=== PATIENT | female | born 1940 | race Caucasian/White ===

== ENCOUNTER 2016-04-22 19:13 | Inpatient (IN) | payer OTHER ==
[~2016-04-22] VITALS: Ht 154.9 cm; Wt 47.8 kg
--- NOTE | 2016-04-22 20:26 | DIAGNOSTIC IMAGING REPORT ---
PROCEDURE: XR CHEST 1 VIEW INDICATION: SHORTNESS OF BREATH TECHNIQUE: Portable AP view 07:46 p.m. COMPARISON: Chest x-ray 06/12/2014 FINDINGS: Hyperinflation with new diffuse increased interstitial markings and pulmonary vascular congestion. Mild cardiomegaly. Thorax is normal. IMPRESSION: 1. Mild cardiomegaly with pulmonary vascular congestion and increased interstitial markings suggestive of mild CHF 2. COPD
--- NOTE | 2016-04-22 21:29 | ED NURSING NOTES ---
Clinical Report - Nurses [facility] [address] [place] [address] 04/22/2016 19:18 [id number] TRI[facility] Triage time 19:Apr 22 2016. Acuity: LEVEL 3. Chief Complaint: FEVER, DYSPNEA and COUGH. SEPSIS SCREEN: Sepsis Screen: negative. Infection suspected/documented. Heart rate greater than 90. TAMIKA COMA SCORE: Tamika Coma Scale: 15- eyes open spontaneously (4); best verbal response- oriented x 4 (5); best motor response- obeys commands (6). --19:32 Nina Yost 19:27 04/22/16. BP: 131/75. HR: 101. RR: 18. O2 saturation: 90% on room air. Temp: 99.5 F (oral). Pain level now: 5/10. --19:32 Nina Yost. Weight: 46.7 kg stated. Height/Length: 60 inches Per Patient. BMI: 20.1. --19:30 Nina Yost. Medications Flonase Nasal. Simvastatin Oral. Spiriva HandiHaler Inhalation. --19:29 Nina Yost Vitamin D Oral. --19:29 Nina Yost Calcium + D Oral. --19:29 Nina Yost. Medication/allergy information source: the patient. --19:32 Nina Yost. Allergies No Known Drug Allergy. --19:30 Nina Yost. History Arrived by private vehicle. Historian: patient. Accompanied by family. Primary physician (Tami Chung). Onset. (1 weeks). ( Patient reports cough and fever for one week. Patient reports history of COPD. Denies use of home O2.). She has had fever. PAST MEDICAL HX: Immunizations: up-to-date. The patient is post-menopausal. SOCIAL HX: Smoker- current status unknown. No alcohol use or drug use. No infectious disease exposure. ABUSE ASSESSMENT: No report of abuse. FALL RISK ASSESSMENT: Fall risk assessment completed. No fall risk identified. NUTRITIONAL RISK ASSESSMENT: The nutritional risk assessment revealed no deficiencies. FUNCTIONAL ASSESSMENT: Functional assessment: no impairments noted. LEARNING NEEDS ASSESSMENT: The learning needs assessment revealed no barriers. SKIN INTEGRITY ASSESSMENT: Skin integrity risk assessment completed. No skin integrity risk identified. --19:32 Nina Yost. PROBLEMS: Throat Cancer. Hyperlipidemia. COPD - Chronic Obstructive Pulmonary Disease. --19:30 Nina Yost. ADDITIONAL SURGERIES: Appendectomy. Hysterectomy. --19:30 Nina Yost. Interventions ID band on patient. To treatment room. --19:32 Nina Yost. PHYSICAL ASSESSMENT Ambulatory to room. Patient gowned. GENERAL / NEURO / PSYCH: Alert. Oriented X 4. Appears in no acute distress. HEENT: Mucous membranes are pink. RESPIRATORY: Mild respiratory distress. Cough. CVS: Cardiac rhythm: sinus tachycardia; (102). SKIN: Skin is warm and dry. --19:38 Nina Yost. NURSING PROGRESS NOTES 19:39 04/22/16. Oxygen administered by nasal cannula at 3 liters. lunchroom monitor, pulse oximeter and NIBP monitor placed on patient; monitor alarms on. Patient gowned. Warming measures: blanket applied. Reassurance given to the patient. Two patient identifiers checked. Call light placed in reach. Side rails up x 1. Bed placed in lowest position. Brakes of bed on. Patient ready for evaluation- chart flagged and ED physician notified. ( Provider at bedside, RT called for eval.). --19:39 Nina Yost 20:11 04/22/2016 Site #1 started via IV in the right antecubital space with an 20g angiocath, with aseptic technique and good blood return; one attempt. Blood drawn: rainbow set. Labeled in the presence of the patient and sent to the lab. Saline lock flushed with 10 mL saline. --20:11 Nina Yost ( Rapid flu swab obtained, labeled and sent to lab). --20:12 Nina Yost 20:06. EKG was performed by a tech. --20:15 McQuoid, Daphnie, ER Tech1 20:46 04/22/2016 Tylenol (Acetaminophen) PO Tablets 650 mg given. Allergies verified and confirmed 5 rights. --20:46 Nina Yost ( Patient reports improvement in breathing after nebulizer treatment. Family at bedside. Patient has no complaints at this time.). --20:46 Nina Yost 20:46 04/22/16. BP: 117/53. HR: 96. RR: 18. O2 saturation: 93% on nasal cannula at 2 liters/minute. Pain level now: 5/10. --20:48 Nina Yost 21:08 04/22/16. BP: 123/58. HR: 99. RR: 20. O2 saturation: 88% on room air. Temp: 101.6 F (oral). Pain level now: 5/10. Additional comments: Provider wanted patient to do a trial on room air, Patient at 88% on RA. 2 L applied, patient at 90% on 2 L. Provider notified . --21:10 Nina Yost 21:39 04/22/2016 Motrin PO Tablets 800 mg given. Allergies verified and confirmed 5 rights. --21:39 Nina Yost 21:58. Oxygen discontinued (per BEL[facility]). --21:58 Daphnie Frank, ER Tech1 22:06 04/22/16. O2 saturation: 83% on room air. O2 started via nasal cannula at 2 liters/minute. --22:06 Daphnie Frank, ER Tech1 22:00 04/22/2016 Duoneb (Ipratropium-Albuterol) Neb TX Nebulizer 2 unit dose given. Given by the respiratory therapist. Allergies verified and confirmed 5 rights. --22:10 Nina Yost 22:20 04/22/2016 Started 1 gm of Ceftriaxone IVPB in bag #1 50 mL; at 150 mL/hr over 20 minute(s) via site #1 via IV pump. Allergies verified and confirmed 5 rights. IV patency established. IV site checked: no pain, redness, or swelling. IV flushed thoroughly pre- and post-medication administration. --22:25 Nina Yost ( Patient had brief episode of tachycardia 178 hr. Provider notified. EKG ordered. Lab at bedside drawing labs.). --22:36 Nina Yost EKG time: (2248 PM). EKG was ordered, performed by elizabeth larson and shown to the ED physician and SAND AND GRAVEL PLANT OPERATOR. --22:52 Argelia Marshall 22:55 04/22/2016 Ceftriaxone IVPB Discontinued: bag #1 completed. Total amount infused: 50 mL. IV patency established. IV site checked: no pain, redness, or swelling. IV flushed thoroughly. --23:00 Derrell Coleman R.N. DISPOSITION / DISCHARGE Condition at departure: stable. --22:30 Nina Yost 22:28 04/22/16. BP: 114/48. HR: 105. RR: 22. O2 saturation: 91% on nasal cannula at 2 liters/minute. Temp: 98.6 F (oral). Pain level now: 07/12. --22:30 Nina Yost Transported via stretcher by nurse with monitor and O2. Report was given to a nurse via a phone call. Report included patient's care, treatment, medications, reviewed medication reconcilliation, and condition (including any recent changes or anticipated changes). All questions were answered. Report was acknowledged and care was transferred. (Rosa HALE). Patient's personal items include: shirt, pants and purse; items were placed in belongings bag and transported with the patient. --23:09 Nina Yost 23:09 04/22/2016 Site #[address] upon admission; patent, no pain and no signs of infection or infiltration; flushes easily. --23:09 Nina Yost. Locked/Released at 04/23/2016 6:36 by Nina Yost,
--- NOTE | 2016-04-22 21:29 | ED ORDER SUMMARY ---
..... Patient: LAURA HICKMAN OrderSheet [facility] VisitID: [id number] [place] [address] 75y, F Registration Date/Time: 04/22/2016 ORDER SHEET Weight: 46.7 kg (stated) Allergies: No Known Drug Allergy GENERAL ORDERS: Chest 1V Urgent (19:44 04/22/2016 EKoroleva P.A.-C) (Ack 19:47 LTapper) (20:03 MCampbell) Coal Crusher Operator (Continuous) (:44 04/22/2016 EKoroleva P.A.-C) (20:00 HSoule) Cardiac Panel Stat (:44 04/22/2016 EKoroleva P.A.-C) (Ack 19:47 LTapper) (22:22 HSoule) EKG - ER Stat (:44 04/22/2016 EKoroleva P.A.-C) (Ack 19:47 LTapper) (20:12 HSoule) Oxygen (2 L/min) (NC) (19:44 04/22/2016 EKoroleva P.A.-C) (20:00 HSoule) Rapid Influenza Screen (Nasal Pharyngeal) (n) Urgent (20:02 04/22/2016 EKoroleva P.A.-C) (Ack 20:05 LTapper) (20:45 HSoule) PCT (Procalcitonin) Urgent (20:38 04/22/2016 EKoroleva P.A.-C) (Ack 20:55 LTapper) BNP Urgent (21:04 04/22/2016 EKoroleva P.A.-C) (Ack 21:10 LTapper) Blood Culture (No) (no) Urgent (22:06 04/22/2016 EKoroleva P.A.-C) (Ack 22:22 HSoule) (23:06 HSoule) MEDICATION ORDERS: Tylenol PO 650 mg (NOW) (20:01 04/22/2016 EKoroleva P.A.-C) (Ack 20:11 HSoule) (20:46 HSoule) Motrin PO 800 mg (NOW) (21:12 04/22/2016 EKoroleva P.A.-C) (Ack 21:24 HSoule) (21:39 HSoule) DuoNeb Neb Tx 2 unit doses (NOW) (21:42 04/22/2016 EKoroleva P.A.-C) (22:10 HSoule) IV FLUIDS: IV Saline Lock (19:44 04/22/2016 EKoroleva P.A.-C) (Ack 20:01 HSoule) (20:11 HSoule) Azithromycin IV 500 mg/250 mL (NOW) (22:06 04/22/2016 EKoroleva P.A.-C) (Ack 22:10 HSoule) (Hold 23:10 HSoule) Ceftriaxone IV 1 gm/50mL (NOW) (22:07 04/22/2016 EKoroleva P.A.-C) (Ack 22:10 HSoule) (22:25 HSoule) ORDER SHEET NOTES: [Electronically signed by Jessi Doe P.A.-C (23:17 04/22/2016)] [Electronically signed by Nina Yost (06:36 04/23/2016)] [Electronically locked/signed by Nina Yost (06:36 04/23/2016)]
--- NOTE | 2016-04-22 21:29 | ED CLINICAL REPORT ---
Clinical Report - Physicians/Mid Levels [facility] [address] [place] [address] 04/22/2016 19:18 [id number] Time Seen: 20:16 Apr 22 2016. Arrived- By private vehicle. Historian- patient. HISTORY OF PRESENT ILLNESS Chief Complaint: DYSPNEA. This started just prior to arrival and is still present. The dyspnea is described as mild. The patient has had sputum production, a cough, fever, chills and dyspnea on exertion. No chest pain or discomfort or calf pain. (patient reports shortness of breath, cough, worsening of all of her symptoms, over the last 24 hours. Reports fevers chills weakness. Denies sick contacts. Denies any recent hospitalization. Has a history of COPD, uses Spar[facility]. No h/o pe/dvt, recent travel. No recent abx. .). REVIEW OF SYSTEMS The patient has not had weight loss. No muscle aches, sore throat, nasal discharge, nausea or difficulty with urination. No skin rash or enlarged lymph nodes. All systems otherwise negative, except as recorded above. PAST HISTORY Problems: Throat Cancer. Hyperlipidemia. Gastroenteritis. COPD - Chronic Obstructive Pulmonary Disease. Additional Surgeries: Appendectomy. Hysterectomy. Medications: Calcium + D Oral. Vitamin D Oral. Flonase Nasal. Simvastatin Oral. Spiriva HandiHaler Inhalation. Allergies: No Known Drug Allergy. SOCIAL HISTORY No alcohol use or drug use. ADDITIONAL NOTES The nursing notes have been reviewed. PHYSICAL EXAM Vital Signs: 04/22/2016 19:27 BP: 131/75. HR: 101. RR: 18. O2 saturation: 90%. Temp: 99.5 F. Pain level now: 5/10. Appearance: Alert. No acute distress. ENT: Nose normal. Pharynx normal. Uvula midline. No pharyngeal erythema. CVS: Tachycardia. Tachycardia (101). Rhythm normal. No extra heart sounds. Respiratory: Decreased air movement. Wheezing present. Back: Normal inspection. No CVA tenderness. Skin: Skin warm. Normal skin color. Neuro: Oriented X 3. LABS, X-RAYS, AND EKG EKG: EKG time: (2011). No acute process. No acute ischemia. Rate: 97. Normal P waves. Normal CIELO. Normal QRS complex. Normal axis. Normal ST and T waves and QT. Chest X-ray: (IMPRESSION: 1. Mild cardiomegaly with pulmonary vascular congestion and increased interstitial markings suggestive of mild CHF 2. COPD Electronically Final signed by:Parth Carrillo MD 04/22/2016 8:26:03 PM). Laboratory Tests: CBC w Diff: (PEARL: 04/22/2016 20:10) ( [facility] 04/[place] 20:25) Final results Test Result Flag Units (Reference) WHITE BLOOD COUNT 8.5 K/uL (4.5-11.5) RED BLOOD COUNT 4.04 M/uL (4.00-5.20) HEMOGLOBIN 12.4 gm/dL (12.0-16.0) HEMATOCRIT 38.0 % (36.0-46.0) MEAN CELL VOLUME 94 fL (80-100) MEAN CORPUSCULAR HGB 31 pg (26-34) MEAN CORPUSCULAR HGB CONC 33 g/dL (31-37) RED CELL DISTRIBUTION WIDTH 14.9 H % (11.6-14.8) PLATELET COUNT 173 K/uL (150-400) NEUTROPHIL % 85.3 H % (50-75) LYMPH % 7.1 L % (25-40) MONO % 7.1 % (3-14) EOSINOPHIL % 0.1 % (0-4) BASOPHIL % 0.4 % (0-2) CHEM 13 PANEL: (EPARL: 04/22/2016 20:10) ( NmgRcvd 04/22/2016 20:53) Final results Test Result Flag Units (Reference) GLUCOSE 132 H mg/dL (70-110) BUN 11 mg/dL (7-18) CREATININE 0.6 mg/dL (0.6-1.3) Estimated GFR >60 mL/min Estimated GFR- >60 mL/min Note: Persistent reduction over 3 months in eGFR<60 mL/min/1.73 m2 defines CKD. Patients with eGFR values>=60 mL/min/1.73 m2 may also have CKD if evidence ofpersistent proteinuria. Additional information may be foundat www.kidney.org. SODIUM 141 mmol/L (136-145) POTASSIUM 3.5 mmol/L (3.5-5.1) CHLORIDE 100 mmol/L (98-107) CARBON DIOXIDE 33 H mmol/L (21-32) CALCIUM 8.9 mg/dL (8.5-10.1) TOTAL PROTEIN 6.9 g/dL (6.4-8.2) ALBUMIN 3.6 g/dL (3.3-5.0) BILIRUBIN, TOTAL 1.4 H mg/dL (0.0-1.0) ALKALINE PHOSPHATASE 96 U/L (46-116) AST (SGOT) 46 H U/L (15-37) ALT (SGPT) 49 U/L (12-78) CPK 72 U/L (24-260) MAGNESIUM 2.0 mg/dL (1.8-2.4) TROPONIN I <0.05 L ng/mL (0.00-1.5) TROPONIN REFERENCE RANGE:<0.1 NEGATIVE0.1-1.5 INDETERMINANT>1.5 POSITIVE Rapid Influenza Screen: (PEARL: 04/22/2016 20:10) ( MsgRcvd 04/22/2016 20:47) Final results SPECIMEN DESCRIPTION: N Test Result Flag Units (Reference) RAPID INFLUENZA SCREEN DATE: 04/22/16 INFLUENZA A: NEGATIVE SCREEN FOR INFLUENZA A INFLUENZA B: NEGATIVE SCREEN FOR INFLUENZA B . PROGRESS AND PROCEDURES Course of Care: here in the ER patient with cough, acute exacerbation of such, with fevers, largely negative workup in the ER. Patient with sat of 88% on room air, improves to 94%. Treatment of DuoNeb given to patient, with some improvement. Rapid influenza is negative. EKG unremarkable. Chest x-ray with no signs of acute infiltrate. Case discussed with , Will except the patient for admission. We'll order blood cultures and initiate antibiotics as discussed. 04/22/2016 22:28 BP: 114/48. HR: 105. RR: 22. O2 saturation: 91%. Temp: 98.6 F. Pain level now: 07/12. 04/22/2016 22:06 O2 saturation: 83%. 04/22/2016 21:08 BP: 123/58. HR: 99. RR: 20. O2 saturation: 88%. Temp: 101.6 F. Pain level now: 08/11. 04/22/2016 20:46 BP: 117/53. HR: 96. RR: 18. O2 saturation: 93%. Pain level now: 08/11. Patient is stable. Patient/family counseled. Differential Diagnosis: I considered asthma, chronic obstructive pulmonary disease, pneumonia, pulmonary embolism, adult respiratory distress syndrome, pneumothorax, congestive heart failure, diabetic ketoacidosis, sepsis, anemia, drug related etiology, hyperventilation and ROBOTIC WELDING OPERATOR disease as a possible cause of dyspnea in this patient. This is a partial list of diagnoses considered. I considered chest wall pain, muscle strain, pleurisy, intercostal neuritis, myocardial infarction, intermediate coronary syndrome, pulmonary embolism, gastroesophageal reflux disease and esophagitis as a possible cause of chest pain in this patient. This is a partial list of diagnoses considered. CLINICAL IMPRESSION COPD exacerbation. INSTRUCTIONS Warnings: Further evaluation is necessary. (Electronically signed by Jessi Doe P.A.-C 04/22/2016 23:17)
--- NOTE | 2016-04-22 21:29 | ED ORDER SUMMARY ---
..... Patient: LAURA HICKMAN [facility] VisitID: [id number] [place] [address] 75y, F Registration Date/Time: 04/22/2016 ORDER SHEET Weight: 46.7 kg (stated) Allergies: No Known Drug Allergy GENERAL ORDERS: Chest 1V Urgent (19:44 04/22/2016 EKoroleva P.A.-C) (Ack 19:47 LTapper) (20:03 MCampbell) Negative Stripper (Continuous) (:44 04/22/2016 EKoroleva P.A.-C) (20:00 HSoule) Cardiac Panel Stat (:44 04/22/2016 EKoroleva P.A.-C) (Ack 19:47 LTapper) (22:22 HSoule) EKG - ER Stat (:44 04/22/2016 EKoroleva P.A.-C) (Ack 19:47 LTapper) (20:12 HSoule) Oxygen (2 L/min) (NC) (19:44 04/22/2016 EKoroleva P.A.-C) (20:00 HSoule) Rapid Influenza Screen (Nasal Pharyngeal) (n) Urgent (20:02 04/22/2016 EKoroleva P.A.-C) (Ack 20:05 LTapper) (20:45 HSoule) PCT (Procalcitonin) Urgent (20:38 04/22/2016 EKoroleva P.A.-C) (Ack 20:55 LTapper) BNP Urgent (21:04 04/22/2016 EKoroleva P.A.-C) (Ack 21:10 LTapper) Blood Culture (No) (no) Urgent (22:06 04/22/2016 EKoroleva P.A.-C) (Ack 22:22 HSoule) (23:06 HSoule) MEDICATION ORDERS: Tylenol PO 650 mg (NOW) (20:01 04/22/2016 EKoroleva P.A.-C) (Ack 20:11 HSoule) (20:46 HSoule) Motrin PO 800 mg (NOW) (21:12 04/22/2016 EKoroleva P.A.-C) (Ack 21:24 HSoule) (21:39 HSoule) DuoNeb Neb Tx 2 unit doses (NOW) (21:42 04/22/2016 EKoroleva P.A.-C) (22:10 HSoule) IV FLUIDS: IV Saline Lock (19:44 04/22/2016 EKoroleva P.A.-C) (Ack 20:01 HSoule) (20:11 HSoule) Azithromycin IV 500 mg/250 mL (NOW) (22:06 04/22/2016 EKoroleva P.A.-C) (Ack 22:10 HSoule) (Hold 23:10 HSoule) Ceftriaxone IV 1 gm/50mL (NOW) (22:07 04/22/2016 EKoroleva P.A.-C) (Ack 22:10 HSoule) (22:25 HSoule) ORDER SHEET NOTES: [Electronically signed by Jessi Doe P.A.-C (23:17 04/22/2016)] [Electronically signed by Nina Yost (06:36 04/23/2016)] [Electronically locked/signed by Nina Yost (06:36 04/23/2016)]
--- NOTE | 2016-04-22 21:29 | ED CLINICAL REPORT ---
Clinical Report - Physicians/Mid Levels [facility] [address] [place] [address] 04/22/2016 19:18 [id number] Time Seen: 20:16 Apr 22 2016. Arrived- By private vehicle. Historian- patient. HISTORY OF PRESENT ILLNESS Chief Complaint: DYSPNEA. This started just prior to arrival and is still present. The dyspnea is described as mild. The patient has had sputum production, a cough, fever, chills and dyspnea on exertion. No chest pain or discomfort or calf pain. (patient reports shortness of breath, cough, worsening of all of her symptoms, over the last 24 hours. Reports fevers chills weakness. Denies sick contacts. Denies any recent hospitalization. Has a history of COPD, uses Spariva. No h/o pe/dvt, recent travel. No recent abx. .). REVIEW OF SYSTEMS The patient has not had weight loss. No muscle aches, sore throat, nasal discharge, nausea or difficulty with urination. No skin rash or enlarged lymph nodes. All systems otherwise negative, except as recorded above. PAST HISTORY Problems: Throat Cancer. Hyperlipidemia. Gastroenteritis. COPD - Chronic Obstructive Pulmonary Disease. Additional Surgeries: Appendectomy. Hysterectomy. Medications: Calcium + D Oral. Vitamin D Oral. Flonase Nasal. Simvastatin Oral. Spiriva HandiHaler Inhalation. Allergies: No Known Drug Allergy. SOCIAL HISTORY No alcohol use or drug use. ADDITIONAL NOTES The nursing notes have been reviewed. PHYSICAL EXAM Vital Signs: 04/22/2016 19:27 BP: 131/75. HR: 101. RR: 18. O2 saturation: 90%. Temp: 99.5 F. Pain level now: 5/10. Appearance: Alert. No acute distress. ENT: Nose normal. Pharynx normal. Uvula midline. No pharyngeal erythema. CVS: Tachycardia. Tachycardia (101). Rhythm normal. No extra heart sounds. Respiratory: Decreased air movement. Wheezing present. Back: Normal inspection. No CVA tenderness. Skin: Skin warm. Normal skin color. Neuro: Oriented X 3. LABS, X-RAYS, AND EKG EKG: EKG time: (2011). No acute process. No acute ischemia. Rate: 97. Normal P waves. Normal CIELO. Normal QRS complex. Normal axis. Normal ST and T waves and QT. Chest X-ray: (IMPRESSION: 1. Mild cardiomegaly with pulmonary vascular congestion and increased interstitial markings suggestive of mild CHF 2. COPD Electronically Final signed by:Parth Carrillo MD 04/22/2016 8:26:03 PM). Laboratory Tests: CBC w Diff: (PEARL: 04/22/2016 20:10) ( [facility] [place] 04/[facility]:25) Final results Test Result Flag Units (Reference) WHITE BLOOD COUNT 8.5 K/uL (4.5-11.5) RED BLOOD COUNT 4.04 M/uL (4.00-5.20) HEMOGLOBIN 12.4 gm/dL (12.0-16.0) HEMATOCRIT 38.0 % (36.0-46.0) MEAN CELL VOLUME 94 fL (80-100) MEAN CORPUSCULAR HGB 31 pg (26-34) MEAN CORPUSCULAR HGB CONC 33 g/dL (31-37) RED CELL DISTRIBUTION WIDTH 14.9 H % (11.6-14.8) PLATELET COUNT 173 K/uL (150-400) NEUTROPHIL % 85.3 H % (50-75) LYMPH % 7.1 L % (25-40) MONO % 7.1 % (3-14) EOSINOPHIL % 0.1 % (0-4) BASOPHIL % 0.4 % (0-2) CHEM 13 PANEL: (PEARL: 04/22/2016 20:10) ( PrgRcvd 04/22/2016 20:53) Final results Test Result Flag Units (Reference) GLUCOSE 132 H mg/dL (70-110) BUN 11 mg/dL (7-18) CREATININE 0.6 mg/dL (0.6-1.3) Estimated GFR >60 mL/min Estimated GFR- >60 mL/min Note: Persistent reduction over 3 months in eGFR<60 mL/min/1.73 m2 defines CKD. Patients with eGFR values>=60 mL/min/1.73 m2 may also have CKD if evidence ofpersistent proteinuria. Additional information may be foundat www.kidney.org. SODIUM 141 mmol/L (136-145) POTASSIUM 3.5 mmol/L (3.5-5.1) CHLORIDE 100 mmol/L (98-107) CARBON DIOXIDE 33 H mmol/L (21-32) CALCIUM 8.9 mg/dL (8.5-10.1) TOTAL PROTEIN 6.9 g/dL (6.4-8.2) ALBUMIN 3.6 g/dL (3.3-5.0) BILIRUBIN, TOTAL 1.4 H mg/dL (0.0-1.0) ALKALINE PHOSPHATASE 96 U/L (46-116) AST (SGOT) 46 H U/L (15-37) ALT (SGPT) 49 U/L (12-78) CPK 72 U/L (24-260) MAGNESIUM 2.0 mg/dL (1.8-2.4) TROPONIN I <0.05 L ng/mL (0.00-1.5) TROPONIN REFERENCE RANGE:<0.1 NEGATIVE0.1-1.5 INDETERMINANT>1.5 POSITIVE Rapid Influenza Screen: (PEARL: 04/22/2016 20:10) ( MsgRcvd 04/22/2016 20:47) Final results SPECIMEN DESCRIPTION: N Test Result Flag Units (Reference) RAPID INFLUENZA SCREEN DATE: 04/22/16 INFLUENZA A: NEGATIVE SCREEN FOR INFLUENZA A INFLUENZA B: NEGATIVE SCREEN FOR INFLUENZA B . PROGRESS AND PROCEDURES Course of Care: here in the ER patient with cough, acute exacerbation of such, with fevers, largely negative workup in the ER. Patient with sat of 88% on room air, improves to 94%. Treatment of DuoNeb given to patient, with some improvement. Rapid influenza is negative. EKG unremarkable. Chest x-ray with no signs of acute infiltrate. Case discussed with , Will except the patient for admission. We'll order blood cultures and initiate antibiotics as discussed. 04/22/2016 22:28 BP: 114/48. HR: 105. RR: 22. O2 saturation: 91%. Temp: 98.6 F. Pain level now: 07/12. 04/22/2016 22:06 O2 saturation: 83%. 04/22/2016 21:08 BP: 123/58. HR: 99. RR: 20. O2 saturation: 88%. Temp: 101.6 F. Pain level now: 08/11. 04/22/2016 20:46 BP: 117/53. HR: 96. RR: 18. O2 saturation: 93%. Pain level now: 08/11. Patient is stable. Patient/family counseled. Differential Diagnosis: I considered asthma, chronic obstructive pulmonary disease, pneumonia, pulmonary embolism, adult respiratory distress syndrome, pneumothorax, congestive heart failure, diabetic ketoacidosis, sepsis, anemia, drug related etiology, hyperventilation and SNAKER DRIVING HORSES disease as a possible cause of dyspnea in this patient. This is a partial list of diagnoses considered. I considered chest wall pain, muscle strain, pleurisy, intercostal neuritis, myocardial infarction, intermediate coronary syndrome, pulmonary embolism, gastroesophageal reflux disease and esophagitis as a possible cause of chest pain in this patient. This is a partial list of diagnoses considered. CLINICAL IMPRESSION COPD exacerbation. INSTRUCTIONS Warnings: Further evaluation is necessary. (Electronically signed by Jessi Doe P.A.-C 04/22/2016 23:17)
--- NOTE | 2016-04-22 23:08 | History & Physical Report ---
Admission Admit Date 04/22/2016 History Chief Complaint Cough, Shortness of Breath, Fever History of Present Illness Patient is a 75 year old female with a past medical history of COPD, "Throat" Cancer, Tobacco Use Disorder, and Hyperlipidemia. She presents to the ER at [facility] complaining of a 1 day hx of worsening cough and shortness of breath. Pt states her cough is productive of clear colored sputum. Pt states she has been feeling poorly for the last day and has experiences significant fatigue, as well as fever and chills. Pt denies any nausea, vomiting, diarrhea, chest pain, and palpitations. She further denies any headache or myalgias. She denies any recent sick contacts. She states over the last day she has felt more and more short of breath and she has been using her inhalers at home to no avail. Pt has no other complaints or concerns at this time. Patient History 1. Throat cancer 2. Hyperlipidemia 3. Tobacco use disorder 4. COPD (chronic obstructive pulmonary disease) Social History Pt does smoke cigarettes. She denies any hx of alcoholism and use of illicit drugs. Family History Family history was reviewed; no changes noted. Medications and Allergies Medications Current Medications Sig/Dina Start time Last Medication Dose Route Stop Time Status Admin Azithromycin 500 MG Q24HR 04/23 0900 UNV Sodium Chloride 250 ML IV 04/25 1000 Ceftriaxone Sodium/ 50 ML Q24HR 04/23 0900 UNV Dextrose IV Methylprednisolone 125 MG Q8HR 04/23 0600 UNV Sodium Succinate IV Pantoprazole Sodium 40 MG DAILY@0600 04/23 0600 UNV IV Albuterol/Ipratropium 3 ML RTQ6H 04/23 0200 UNV IN Acetaminophen 650 MG Q6H PRN 04/22 2300 UNV PO Docusate Sodium 250 MG BID PRN 04/22 2300 UNV PO Morphine Sulfate 1 MG Q6H PRN 04/22 2300 UNV IV Naloxone HCl 0.4 MG PRN PRN 04/22 2300 UNV IV Ondansetron HCl 4 MG Q6H PRN 04/22 2300 UNV IV Sodium Chloride 1,000 ML ASDIRECTED 04/22 2300 UNV IV Zolpidem Tartrate 5 MG QHS PRN 04/22 2300 UNV PO Sodium Chloride 1,000 ML ASDIRECTED 04/22 2245 UNV IV Pts home medications have not yet been reconciled. Allergies Coded Allergies: No Known Drug Allergy (12/05/09) Uncoded Allergies: Food Allergies: NKA Latex Allergy: N Med Allergies: NKA Review of Systems Other All systems reviewed and are negative except for what has already been mentioned in the HPI. Physical Exam Vital Signs / I&Os Vital Signs Date Time Temp Pulse Resp B/P Pulse O2 O2 Flow FiO2 Ox Delivery Rate 04/22 2142 100.9 101 18 135/80 97% NC 2.0 04/22 1940 2.0 Other GENERAL: NAD; Pt laying comfortably in bed HEENT: AT/NC; PERRLA, EOMI; MM Moist CARDIAC: Tachycardic, No M/R/G appreciated PULM: Coarse breath sounds with diffuse expiratory wheezes throughout bilateral lungs, normal respiratory effort with retractions ABD: Soft, NT, ND, Positive BS in all quadrants; No hepatosplenomegaly appreciated EXT: No C/C/E in bilateral upper and lower extremity; No calve tenderness bilaterally SKIN: Warm, dry, pink, and intact NEURO: Alert and oriented x3; Following all commands PSYCH: Normal mood and affect LAB Results Laboratory Tests 04/22 Chemistry Plasma Sodium (136 - 145 mmol/L) 141 Plasma Potassium (3.5 - 5.1 mmol/L) 3.5 Plasma Chloride (98 - 107 mmol/L) 100 CO2 (Enzymatic) (21 - 32 mmol/L) 33 BUN (7 - 18 mg/dL) 11 Creatinine (0.6 - 1.3 mg/dL) 0.6 Est GFR ( Amer) (mL/min) >60 Est GFR (Non-Af Amer) (mL/min) >60 Glucose (70 - 110 mg/dL) 132 Plasma Calcium (8.5 - 10.1 mg/dL) 8.9 Plasma Magnesium (1.8 - 2.4 mg/dL) 2.0 Total Bilirubin (0.0 - 1.0 mg/dL) 1.4 AST (15 - 37 U/L) 46 ALT (12 - 78 U/L) 49 Alkaline Phosphatase (46 - 116 U/L) 96 Creatine Kinase (24 - 260 U/L) 72 Troponin (0.00 - 1.5 ng/mL) <0.05 B-Natriuretic Peptide (5 - 100 pg/ml) 102 Total Protein (6.4 - 8.2 g/dL) 6.9 Albumin (3.3 - 5.0 g/dL) 3.6 Procalcitonin Pending Hematology WBC (4.5 - 11.5 K/uL) 8.5 RBC (4.00 - 5.20 M/uL) 4.04 Hgb (12.0 - 16.0 gm/dL) 12.4 Hct (36.0 - 46.0 %) 38.0 MCV (80 - 100 fL) 94 MCH (26 - 34 pg) 31 RDW (11.6 - 14.8 %) 14.9 Neut % (Auto) (50 - 75 %) 85.3 Lymph % (Auto) (25 - 40 %) 7.1 [place] % (Auto) (3 - 14 %) 7.1 Eos % (Auto) (0 - 4 %) 0.1 Baso % (Auto) (0 - 2 %) 0.4 Plt Count, EDTA (150 - 400 K/uL) 173 PUBS MCHC (31 - 37 g/dL) 33 Microbiology Date/Time Procedure - Status Source Growth 04/22 224 Blood Culture - RECD BLOOD 04/22 2229 Blood Culture - RECD BLOOD 04/22 2009 Influenza Screen - COMP NASALPHAR Imaging XR CHEST 1 VIEW INDICATION: SHORTNESS OF BREATH TECHNIQUE: Portable AP view 07:46 p.m. COMPARISON: Chest x-ray 06/12/2014 FINDINGS: Hyperinflation with new diffuse increased interstitial markings and pulmonary vascular congestion. Mild cardiomegaly. Thorax is normal. IMPRESSION: 1. Mild cardiomegaly with pulmonary vascular congestion and increased interstitial markings suggestive of mild CHF 2. COPD Assessment and Plan Problem List 1. Pneumonia Plan - Likely secondary to Community Acquired Pneumonia which is present on admission - Start IV Rocephin - Start IV Azithromycin - Blood cultures x2 have been taken in the ER - Check urine Strep Pneumoniae Ag - Check urine Legionella Ag - Check Respiratory Viral PCR Panel - Pt is flu negative - Check CRP now - Recheck Procalcitonin in 2 days - Repeat CBC with diff in AM - Repeat 2 view chest x-ray in AM - Supplemental O2 to keep SpO2 greater than 92% - Breathing treatments, see #2 2. COPD with exacerbation Plan - Secondary to Pneumonia - Start IV Solu-Medrol 125 mg q 8 hours - Duo-Neb breathing treatments q 6 hours scheduled - Supplemental O2 to keep SpO2 greater than 92% - Monitor closely 3. Hyperlipidemia Plan - Pt is normally on Atorvastatin at home however dose is unknown therefore day team to restart this medication in AM 4. Tobacco use disorder Plan - Pt counseled to quit smoking
[2016-04-22 23:40] VITALS: BP 116/60
[2016-04-23] VITALS (7 sets, daily range): BP systolic 86–120; BP diastolic 45–75
--- NOTE | 2016-04-23 06:36 | ED DISCHARGE INSTRUCTIONS ---
Patient: LAURA HICKMAN General Instructions [facility] VisitID: [id number] [address] [place] [address] 75y, F Registration Date/Time: 04/22/2016 COPD exacerbation. INSTRUCTIONS Warnings: Further evaluation is necessary. (Electronically signed by Jessi Doe P.A.-C 04/22/2016 23:17)
--- NOTE | 2016-04-23 06:36 | ED DISCHARGE INSTRUCTIONS ---
Patient: LAURA HICKMAN General Instructions [facility] VisitID: [id number] [address] [place] [address] 75y, F Registration Date/Time: 04/22/2016 COPD exacerbation. INSTRUCTIONS Warnings: Further evaluation is necessary. (Electronically signed by Jessi Doe P.A.-C 04/22/2016 23:17)
--- NOTE | 2016-04-23 06:37 | ED MAR SUMMARY ---
..... Medication Administration Record [facility] [address] [place] [address] Patient: LAURA HICKMAN Visit ID: [id number] 75y, F Weight: 46.7 kg Height/Length: 60 in BMI: 20.1 ALLERGIES: No Known Drug Allergy Given 20:46 04/22/2016 Nina Yost, Medication Administered: TYLENOL [PO] (ACETAMINOPHEN), Dose: 650 mg Tablets PO. Medication Ordered: Tylenol PO 650 mg (NOW). Given 21:39 04/22/2016 Nina Yost, Medication Administered: MOTRIN [PO], Dose: 800 mg Tablets PO. Medication Ordered: Motrin PO 800 mg (NOW). Given 22:00 04/22/2016 Nina Yost, Medication Administered: DUONEB [NEB TX] (IPRATROPIUM-ALBUTEROL), Dose: 2 unit dose Nebulizer Neb TX. Medication Ordered: DuoNeb Neb Tx 2 unit doses (NOW). Start 22:20 04/22/2016 Nina Yost,, Stop 22:55 04/22/2016 Derrell Coleman R.N. Medication Administered: CEFTRIAXONE [IVPB], Dose: 1 gm IVPB over 20 minute(s), Rate: 150 mL/hr, Dispensed: 50 mL bag, Site: #1 right . Medication Ordered: Ceftriaxone IV 1 gm/50mL (NOW).
--- NOTE | 2016-04-23 06:37 | ED MAR SUMMARY ---
..... Medication Administration Record [facility] [address] [place] [address] Patient: LAURA HICKMAN Visit ID: [id number] 75y, F Weight: 46.7 kg Height/Length: 60 in BMI: 20.1 ALLERGIES: No Known Drug Allergy Given 20:46 04/22/2016 Nina Yost, Medication Administered: TYLENOL [PO] (ACETAMINOPHEN), Dose: 650 mg Tablets PO. Medication Ordered: Tylenol PO 650 mg (NOW). Given 21:39 04/22/2016 Nina Yost, Medication Administered: MOTRIN [PO], Dose: 800 mg Tablets PO. Medication Ordered: Motrin PO 800 mg (NOW). Given 22:00 04/22/2016 Nina Yost, Medication Administered: DUONEB [NEB TX] (IPRATROPIUM-ALBUTEROL), Dose: 2 unit dose Nebulizer Neb TX. Medication Ordered: DuoNeb Neb Tx 2 unit doses (NOW). Start 22:20 04/22/2016 Nina Yost,, Stop 22:55 04/22/2016 Derrell Coleman R.N. Medication Administered: CEFTRIAXONE [IVPB], Dose: 1 gm IVPB over 20 minute(s), Rate: 150 mL/hr, Dispensed: 50 mL bag, Site: #1 right . Medication Ordered: Ceftriaxone IV 1 gm/50mL (NOW).
--- NOTE | 2016-04-23 06:37 | ED MED RECONCILIATION SUMMARY ---
Patient: LAURA HICKMAN Medication Reconciliation Report [facility] VisitID: [id number] [address] [place] [address] 75y, F Registration Date/Time: 04/22/2016 Weight: 46.7 kg Height/Length: 60 in. BMI: 20.1 ALLERGIES: No Known Drug Allergy The patient's Home Medications are listed below: THE FOLLOWING MEDICATIONS NEED TO BE RECONCILED: Calcium + D Oral Flonase Nasal Simvastatin Oral Spiriva HandiHaler Inhalation Vitamin D Oral The source(s) of the original Home Medication information: patient The following Medications were given to the patient in the Emergency Department: Tylenol [PO] PO 650 mg, administered: 04/22/2016 8:46:00 PM Motrin [PO] PO 800 mg, administered: 04/22/2016 9:39:00 PM Duoneb [Neb Tx] Neb TX 2 unit dose, administered: 04/22/2016 10:00:00 PM Ceftriaxone [IVPB] IVPB bolus 0, then 1 gm 150 mL/hr, administered: 04/22/2016 10:20:00 PM The following Medications were prescribed to the patient: None.
--- NOTE | 2016-04-23 06:37 | ED MED RECONCILIATION SUMMARY ---
Patient: LAURA HICKMAN Medication Reconciliation Report [facility] VisitID: [id number] [address] [place] [address] 75y, F Registration Date/Time: 04/22/2016 Weight: 46.7 kg Height/Length: 60 in. BMI: 20.1 ALLERGIES: No Known Drug Allergy The patient's Home Medications are listed below: THE FOLLOWING MEDICATIONS NEED TO BE RECONCILED: Calcium + D Oral Flonase Nasal Simvastatin Oral Spiriva HandiHaler Inhalation Vitamin D Oral The source(s) of the original Home Medication information: patient The following Medications were given to the patient in the Emergency Department: Tylenol [PO] PO 650 mg, administered: 04/22/2016 8:46:00 PM Motrin [PO] PO 800 mg, administered: 04/22/2016 9:39:00 PM Duoneb [Neb Tx] Neb TX 2 unit dose, administered: 04/22/2016 10:00:00 PM Ceftriaxone [IVPB] IVPB bolus 0, then 1 gm 150 mL/hr, administered: 04/22/2016 10:20:00 PM The following Medications were prescribed to the patient: None.
--- NOTE | 2016-04-23 07:55 | Progress Note ---
Subjective General 75 yo female admitted with COPD exacerbation and diagnosis of pneumonia, though CXR is negative. Respiratory PCR panel ordered and pending. Pt feels somewhat improved but still coughing and mildly sob. Lightheaded on standing. Physical Exam Vital Signs / I&Os Vital Signs Date Time Temp Pulse Resp B/P Pulse O2 O2 Flow FiO2 Ox Delivery Rate 04/23 0543 98.1 95 20 94/53 92 Nasal 2.0 Cannula 04/23 0515 2.0 04/23 0201 88/45 04/23 0159 98.2 86 16 86/50 99 Nasal 2.0 Cannula 04/23 0146 2.0 04/23 0005 4.0 04/22 2340 99.0 97 16 116/60 92 Nasal 4.0 Cannula 04/22 2143 2.0 04/22 1941 2.0 General Appearance Alert, Oriented X3, Cooperative, No acute distress Lungs Normal exam Cardiovascular Regular rate and rhythm Abdomen Normal bowel sounds, Soft, No tenderness Extremities No edema Skin No Rashes LAB Results Laboratory Tests 04/22 Chemistry Plasma Sodium (136 - 145 mmol/L) 141 142 Plasma Potassium (3.5 - 5.1 mmol/L) 3.5 2.9 Plasma Chloride (98 - 107 mmol/L) 100 103 CO2 (Enzymatic) (21 - 32 mmol/L) 33 30 BUN (7 - 18 mg/dL) 11 10 Creatinine (0.6 - 1.3 mg/dL) 0.6 0.8 Est GFR ( Amer) (mL/min) >60 >60 Est GFR (Non-Af Amer) (mL/min) >60 >60 Glucose (70 - 110 mg/dL) 132 108 Plasma Calcium (8.5 - 10.1 mg/dL) 8.9 8.1 Plasma Magnesium (1.8 - 2.4 mg/dL) 2.0 1.9 Total Bilirubin (0.0 - 1.0 mg/dL) 1.4 AST (15 - 37 U/L) 46 ALT (12 - 78 U/L) 49 Alkaline Phosphatase (46 - 116 U/L) 96 Creatine Kinase (24 - 260 U/L) 72 Troponin (0.00 - 1.5 ng/mL) <0.05 B-Natriuretic Peptide (5 - 100 pg/ml) 102 Total Protein (6.4 - 8.2 g/dL) 6.9 Albumin (3.3 - 5.0 g/dL) 3.6 Procalcitonin (0 - 0.5 ng/mL) 0.2 Hematology WBC (4.5 - 11.5 K/uL) 8.5 6.1 RBC (4.00 - 5.20 M/uL) 4.04 3.92 Hgb (12.0 - 16.0 gm/dL) 12.4 12.1 Hct (36.0 - 46.0 %) 38.0 37.3 MCV (80 - 100 fL) 94 95 MCH (26 - 34 pg) 31 31 RDW (11.6 - 14.8 %) 14.9 14.4 Neut % (Auto) (50 - 75 %) 85.3 85.9 Lymph % (Auto) (25 - 40 %) 7.1 7.9 [place] % (Auto) (3 - 14 %) 7.1 5.8 Eos % (Auto) (0 - 4 %) 0.1 0.4 Baso % (Auto) (0 - 2 %) 0.4 0 Plt Count, EDTA (150 - 400 K/uL) 173 165 PUBS MCHC (31 - 37 g/dL) 33 32 Microbiology Date/Time Procedure - Status Source Growth 04/22 2243 Blood Culture - RECD BLOOD 04/22 2229 Blood Culture - RECD BLOOD 04/22 2009 Influenza Screen - COMP NASALPHAR Assessment and Plan Problem List 1. COPD exacerbation Plan Improving with antibiotics oxygen and nebulized rx. 2. Pneumonia Plan Biofire panel pending.
--- NOTE | 2016-04-23 08:24 | DIAGNOSTIC IMAGING REPORT ---
PROCEDURE: XR CHEST 1 VIEW INDICATION: Pneumonia, follow-up TECHNIQUE: Portable AP view 04:54 a.m. COMPARISON: Chest x-ray 04/22/2016 FINDINGS: Hyperinflation. Mild cardiomegaly with progression of diffuse increased interstitial markings and pulmonary vascular congestion. No effusion. Bony thorax is unremarkable. IMPRESSION: 1. Cardiomegaly with progression of interstitial markings suggestive of CHF versus interstitial atypical pneumonitis 2. COPD 3. Results discussed with Dr. Beverly
[2016-04-24 02:13] VITALS: BP 125/70
[2016-04-24 06:52] VITALS: BP 117/77
--- NOTE | 2016-04-24 08:13 | DIAGNOSTIC IMAGING REPORT ---
PROCEDURE: XR CHEST 2 VIEW INDICATION: COPD, initial encounter TECHNIQUE: PA and lateral view. COMPARISON: Chest x-ray 04/23/2016 FINDINGS: Stable mild cardiomegaly. Hyperinflation. Improved diffuse increased interstitial markings. Bony thorax is unremarkable. IMPRESSION: 1. Cardiomegaly with improved interstitial edema versus atypical pneumonitis 2. COPD
[2016-04-24 10:33] VITALS: BP 123/58
--- NOTE | 2016-04-24 12:40 | Discharge Summary ---
Discharge Summary Report Admit Date 04/22/16 Discharge Date 04/24/16 Admission Diagnosis 1. Pneumonia 2. COPD exacerbation 3. Tobacco use disorder/nicotine dependence-smoking Discharge Diagnosis 1. Pneumonia 2. COPD exacerbation 3. Tobacco use disorder/nicotine dependence-smoking 4. Hypokalemia-resolved 5. Elevated LFTs-mild Brief History See admission history and physical examination and ER visit note. Hospital Course The following problems and their management were noted during the patient's hospitalization: 1. Pneumonia The patient was admitted with findings of pneumonia. She was treated with IV/ oral antimicrobials. Symptoms improve significantly prior to discharge. She was afebrile at the time of discharge. WBC and procalcitonin were normal at discharge. She was discharged home on Zithromax. 2. COPD exacerbation The patient presented with findings consistent with COPD exacerbation. She was treated with IV antimicrobials, DuoNeb, albuterol, and corticosteroids. Symptoms improved rapidly. At the time of discharge the patient was up ambulating without significant problem. She was discharged home on DuoNeb one via nebulizer every 6 hours, albuterol neb when necessary, and prednisone taper. The patient will follow-up with her PCP within the next week. 3. Tobacco use disorder/nicotine dependence-smoking The patient has a history of nicotine dependence-smoking. She underwent smoking cessation education. Encouraged to follow smoking abstinence program post discharge. 4. Hypokalemia The patient was noted to have hypokalemia during her hospital stay. This resolved prior to discharge. 5. Elevated LFTs The patient was noted to have mild elevation of LFTs during her hospital stay. She should undergo repeat LFTs with her PCP in 2-4 weeks for reevaluation. General Appearance Alert, Oriented X3, Cooperative, No acute distress Lungs Scattered rhonchi, minimal expiratory wheezes. No rales. Cardiovascular Regular Rate, Normal S1, Normal S2 Abdomen Normal bowel sounds, Soft, No tenderness Neurological Strength at 5/5 X4 ext, Cranial nerves 3-12 NL Psych/Mental Status Mental status NL, Mood NL Lab/Imaging Laboratory Tests 04/24 0534 Chemistry Plasma Sodium (136 - 145 mmol/L) 145 Plasma Potassium (3.5 - 5.1 mmol/L) 3.5 Plasma Chloride (98 - 107 mmol/L) 107 CO2 (Enzymatic) (21 - 32 mmol/L) 32 BUN (7 - 18 mg/dL) 14 Creatinine (0.6 - 1.3 mg/dL) 0.6 Est GFR ( Amer) (mL/min) >60 Est GFR (Non-Af Amer) (mL/min) >60 Glucose (70 - 110 mg/dL) 198 Plasma Calcium (8.5 - 10.1 mg/dL) 8.6 Plasma Magnesium (1.8 - 2.4 mg/dL) 2.1 Total Bilirubin (0.0 - 1.0 mg/dL) 0.4 AST (15 - 37 U/L) 86 ALT (12 - 78 U/L) 96 Alkaline Phosphatase (46 - 116 U/L) 115 Total Protein (6.4 - 8.2 g/dL) 6.3 Albumin (3.3 - 5.0 g/dL) 2.8 Hematology WBC (4.5 - 11.5 K/uL) 7.6 RBC (4.00 - 5.20 M/uL) 3.55 Hgb (12.0 - 16.0 gm/dL) 11.0 Hct (36.0 - 46.0 %) 33.4 MCV (80 - 100 fL) 94 MCH (26 - 34 pg) 31 RDW (11.6 - 14.8 %) 14.7 Neut % (Auto) (50 - 75 %) 94.4 Lymph % (Auto) (25 - 40 %) 2.7 [place] % (Auto) (3 - 14 %) 2.8 Eos % (Auto) (0 - 4 %) 0 Baso % (Auto) (0 - 2 %) 0.1 Plt Count, EDTA (150 - 400 K/uL) 170 PUBS MCHC (31 - 37 g/dL) 33 Chest X-Ray IMPRESSION: 1. Cardiomegaly with improved interstitial edema versus atypical pneumonitis 2. COPD Dictated by: WHITLEY BABIN MD D: JULIO C;04/24/16 0813 Discharge Instructions/Meds For other recommendations regarding discharge diet, activity, followup, and discharge medications please see the patient's discharge instructions. Discharge condition: Fair, improved Greater than 30 min. was spent in the patient's discharge preparation including discharge interview and physical examination, progress note, discharge instructions, and discharge summary The patient was interviewed and examined on the day of discharge. E&M Codes Discharge: Inpt >30 min spent/[id number]
[2016-04-24] MEDS ORDERED: ALBUTEROL HFA60 DOSE IN (13:57)
[2016-04-24] MEDS ORDERED: PREDNISONE20 MG PO (13:57)
[2016-04-24] MEDS ORDERED: COMBIVENT RESPIMAT IN (13:57)
[2016-04-24] MEDS ORDERED: ZITHROMAX500 MG PO (13:58)
--- NOTE | 2016-04-24 14:00 | Provider's Discharge Care Plan ---
Problem, Goal, Plan Problem List 1. Pneumonia Goals: Improve disease control, Prevent disease progress Instructions: Follow up as directed, Take meds as directed 2. COPD exacerbation Goals: Improve disease control, Improve function, Prevent disease progress Instructions: Follow up as directed, Take meds as directed, Stop smoking 3. Tobacco use disorder Goals: Improve disease control, Improve function, Improved health/wellness, Prevent disease progress Instructions: Follow up as directed, Take meds as directed, Stop smoking
[2016-04-24] MEDS ORDERED: O2 IN (14:01)
[2016-04-24 14:22] VITALS: BP 127/70
== END 2016-04-24 16:00 | disposition home or self-care (01) | DRG 190 ==
LOC: ED SRH 19:13 → ACUTE3 SRH 23:04 → TRANS SRH 23:04 → ACUTE3 SRH 23:05 → TRANS SRH 04-23 00:24 → ACUTE3 SRH 04-24 16:00
PROVIDERS: ADMIT Family Medicine
DX: J44.0 Chronic obstructive pulmonary disease with (acute) lower respiratory infection (principal); J18.9 Pneumonia, unspecified organism; J44.1 Chronic obstructive pulmonary disease with (acute) exacerbation; F17.210 Nicotine dependence, cigarettes, uncomplicated; E87.6 Hypokalemia; R74.8 Abnormal levels of other serum enzymes

== ENCOUNTER 2016-05-06 08:19 | Inpatient (IN) | payer OTHER ==
[~2016-05-06] VITALS: Ht 154.9 cm; Wt 46.0 kg
[~2016-05-06 08:19] MED LIST: ALBUTEROL HFA60 DOSE IN; COMBIVENT RESPIMAT IN; O2 IN; PREDNISONE20 MG PO; ZITHROMAX500 MG PO
--- NOTE | 2016-05-06 09:24 | DIAGNOSTIC IMAGING REPORT ---
PROCEDURE: XR CHEST 2 VIEW INDICATION: CHEST PAIN TECHNIQUE: PA and lateral views. COMPARISON: Chest x-ray 04/24/2016 and 06/12/2014 FINDINGS: There is patchy new infiltrate in the lingula. This can be seen on the lateral view just below the sternum. Heart and mediastinum are normal. Thorax is normal. IMPRESSION: 1. Patchy new lingular infiltrate seen in the retrosternal region on the lateral view. 2. Results discussed with Dr. Cote at 09:20 a.m.
--- NOTE | 2016-05-06 10:27 | ED CLINICAL REPORT ---
Clinical Report - Physicians/Mid Levels [facility] [address] [place] [address] 05/06/2016 8:19 [id number] Time Seen: 08:43. Arrived- By private vehicle. Historian- patient. HISTORY OF PRESENT ILLNESS Chief Complaint: CHEST PAIN. NECK PAIN, BACK PAIN and WEAKNESS Dyspnea. At its maximum, severity described as moderate. When seen in the E.D., severity described as moderate. Modifying factors- worsened by movement and walking. Relieved by rest. (oxygen helps dyspnea). This started yesterday and is still present. It was gradual in onset and has been waxing/waning. Onset during light activity. It is described as sharp and "pain" and it is described as located in the right chest area and neck. No radiation. No nausea, vomiting or diaphoresis. She has had difficulty breathing. Similar symptoms previously: Recent medical care: The patient was seen recently at this facility and hospitalized. Seen for similar symptoms. Diagnosis: (pneumonia). REVIEW OF SYSTEMS The patient is post-menopausal. She has had measured temperature of 100 F orally. She has had a moderate cough productive of moderate amounts of yellow sputum. There has been a change from the baseline cough and sputum. No blood tinged sputum or frankly bloody sputum. No pedal edema, calf pain, fainting episodes, headache or sore throat. No abdominal pain, black stools, difficulty with urination, skin rash or bloody stools. She has had joint pain. All systems otherwise negative, except as recorded above. PAST HISTORY No history of aortic disease, coronary artery disease, congestive heart failure, heart rhythm problems or pulmonary embolism. Chronic obstructive pulmonary disease secondary to smoking. She is on home oxygen. Hyperlipidemia. Gastroesophageal reflux. History of cancer ("throat cancer"). Surgeries: Appendectomy. Had hysterectomy. Medications: Vitamin D3 Oral. Tylenol. Meloxicam Oral. Omeprazole Oral. Calcium + D Oral. Flonase Nasal. Simvastatin Oral. Spiriva HandiHaler Inhalation. Allergies: No Known Drug Allergy. SOCIAL HISTORY Smoker- current status unknown. No alcohol use or drug use. ADDITIONAL NOTES The nursing notes have been reviewed. PHYSICAL EXAM Vital Signs: 05/06/2016 08:33 BP: 97/47. HR: 77. RR: 20. O2 saturation: 96%. Temp: 97.5 F. Pain level now: 310. Appearance: Alert. Oriented X3. Patient in moderate distress. Eyes: Pupils equal, round and reactive to light. Eyes normal inspection. No scleral icterus or pale conjunctivae. ENT: Pharynx normal. No pharyngeal erythema or tonsillar exudate. The mucous membranes are not dry. Neck: Normal inspection. Neck supple. Moderate soft tissue tenderness in the right lower neck area and left lower neck area. CVS: Normal heart rate and rhythm. Pulses normal. Respiratory: Chest pain reproducible with palpation of the anterior ribs. Expiratory moderate bilateral wheezes present. Moderate rales in the left lung. Abdomen: Soft and nontender. Back: Moderate soft-tissue tenderness in the right mid thoracic area. Normal external inspection. Skin: Skin warm and dry. Normal skin color. Normal skin turgor. Extremities: Extremities exhibit normal ROM. No calf tenderness. No lower extremity edema. Neuro: Oriented X 3. No motor deficit. LABS, X-RAYS, AND EKG EKG: EKG time: (09:36). Normal sinus rhythm. Rate: 75. Normal CIELO. Left anterior fascicular block. Non-specific ST segment / T wave abnormalities. EKG unchanged when compared with prior EKG. (no change from 22 APR 2016). The study has been interpreted contemporaneously by me. The EKG appears to be a good tracing. Rhythm Strip #1: Normal sinus rhythm. Regular rhythm. Narrow QRS complexes. No ectopy. Chest X-ray: (IMPRESSION: 1. Patchy new lingular infiltrate seen in the retrosternal region on the lateral view.). Views: PA and lateral. Technique: good. The X-rays were interpreted contemporaneously by me. The X-rays were discussed with the radiologist (via PACS note). Laboratory Tests: CBC w Diff: (PEARL: 05/06/2016 09:39) ( MsgRcvd 05/06/2016 09:44) Final results Test Result Flag Units (Reference) WHITE BLOOD COUNT 13.8 H K/uL (4.5-11.5) RED BLOOD COUNT 3.61 L M/uL (4.00-5.20) HEMOGLOBIN 11.2 L gm/dL (12.0-16.0) HEMATOCRIT 33.6 L % (36.0-46.0) MEAN CELL VOLUME 93 fL (80-100) MEAN CORPUSCULAR HGB 31 pg (26-34) MEAN CORPUSCULAR HGB CONC 33 g/dL (31-37) RED CELL DISTRIBUTION WIDTH 15.1 H % (11.6-14.8) PLATELET COUNT 233 K/uL (150-400) NEUTROPHIL % 88.0 H % (50-75) LYMPH % 6.6 L % (25-40) MONO % 5.1 % (3-14) EOSINOPHIL % 0.2 % (0-4) BASOPHIL % 0.1 % (0-2) PT with INR: (PEARL: 05/06/2016 09:39) ( MsgRcvd 05/06/2016 10:45) Final results Test Result Flag Units (Reference) INR 1.1 (0.8-1.2) Low Intensity Therapy: INR 1.5-2.0 PT range 18.5-23.1Mod.Intensity Therapy: INR 2.0-3.0 PT range 23.1-31.5High Intensity Therapy: INR 2.5-3.5 PT range 27.4-35.5High Intensity Therapy 2: INR 3.0-4.0 PT range 31.5-39.3 D-DIMER QUANTITATIVE 0.54 H ug/mLFEU (0.27-0.52) The primary value of this quantitative assay relates toits negative predictive value (i.e. exclusion) of pulmonaryembolism/deep vein thrombosis/DIC.Elevated levels of d-dimer may also occur with:, age, cancer, inflammation, liver disease,post-op, infection, hematoma, coronary disease, peripheralarteriopathy, bleeding disorders and thrombolytic treatment.Results should be correlated with other clinical andradiological data.Testing Methodology: Latex Immunoassay [id number]: (PEARL: 05/06/2016 09:39) ( MsgRcvd 05/06/2016 10:39) Final results Test Result Flag Units (Reference) PROCALCITONIN <0.5 ng/mL (0-0.5) PCT Concentration: Interpretation : Risk/option for action PCT <=0.5 ng/mL : Systemic : Low risk forinfection(sepsis): progression to severeis not likely. : systemic infection.Local bacterial : CAUTION-PCT levelsinfection is : below 0.5 ng/mL do notpossible. : exclude an infection,because localizedinfections (withoutsystemic signs) may beassociated with suchlow levels. If PCT ismeasured very earlyafter a bacterialchallenge (usually <6hours), these valuesmay still be low. Inthis case PCT shouldbe re-assessed 6-24hours later. PCT >0.5 and : Systemic infection: Moderate risk for<= 2 ng/mL : (sepsis) is : progression to severepossible, but : systemic infection.other conditions : The patient should beare known to : closely monitoredelevate PCT. : both clinically andby re-assessing PCTwithin 6-24 hours. PCT > 2 ng/mL : Systemic infection: High risk for(sepsis) is likely: progression to severeunless other : systemic infection.causes are known. : PCT >= 10 ng/mL : Important systemic: High likelihood ofinflammatory : severe sepsis orresponse, almost : septic shock.exclusively due to:severe bacterial :sepsis or septic :shock. : BNP: (PEARL: 05/06/2016 09:39) ( [facility] 05/06/2016 10:03) Final results Test Result Flag Units (Reference) B-TYPE NATRIURETIC PEPTIDE 31.2 pg/ml (5-100) CHEM 13 PANEL: (PEARL: 05/06/2016 09:39) ( [facility] 05/06/2016 10:15) Final results Test Result Flag Units (Reference) GLUCOSE 99 mg/dL (70-110) BUN 14 mg/dL (7-18) CREATININE 0.6 mg/dL (0.6-1.3) Estimated GFR >60 mL/min Estimated GFR- >60 mL/min Note: Persistent reduction over 3 months in eGFR<60 mL/min/1.73 m2 defines CKD. Patients with eGFR values>=60 mL/min/1.73 m2 may also have CKD if evidence ofpersistent proteinuria. Additional information may be foundat www.kidney.org. SODIUM 141 mmol/L (136-145) POTASSIUM 3.4 L mmol/L (3.5-5.1) CHLORIDE 103 mmol/L (98-107) CARBON DIOXIDE 31 mmol/L (21-32) CALCIUM 8.3 L mg/dL (8.5-10.1) TOTAL PROTEIN 5.7 L g/dL (6.4-8.2) ALBUMIN 2.7 L g/dL (3.3-5.0) BILIRUBIN, TOTAL 1.4 H mg/dL (0.0-1.0) ALKALINE PHOSPHATASE 71 U/L (46-116) AST (SGOT) 14 L U/L (15-37) ALT (SGPT) 25 U/L (12-78) MAGNESIUM 2.1 mg/dL (1.8-2.4) AMYLASE 31 U/L (25-115) CPK 15 L U/L (24-260) TROPONIN I <0.05 L ng/mL (0.00-1.5) TROPONIN REFERENCE RANGE:<0.1 NEGATIVE0.1-1.5 INDETERMINANT>1.5 POSITIVE Rapid Influenza Screen: (PEARL: 05/06/2016 09:10) ( MsgRcvd 05/06/2016 09:51) Final results SPECIMEN DESCRIPTION: GANG KNIFE FISH CHOPPER SWAB Test Result Flag Units (Reference) RAPID INFLUENZA SCREEN DATE: 05/06/16 INFLUENZA A: NEGATIVE SCREEN FOR INFLUENZA A INFLUENZA B: NEGATIVE SCREEN FOR INFLUENZA B . Microbiology: Blood culture x2 ordered. Pulse Oximetry: 05/06/2016 08:33 O2 saturation: 96%. (FIO2- nasal cannula). PROGRESS AND PROCEDURES Course of Care: Normal Saline 1 liter IVPB given. Levaquin 750 mg PO given. DuoNeb nebulizer treatment (1 unit dose) given. Pt with fever at home - now afebrile by our measurement. Increasing cough and dyspnea and weakness. Pt has recently been taking po Azithro and IV Ceftriaxone. With new infiltrate today on CXR, I will assure failure of these antibiotics and begin Levaquin (potential benefit > risk). SBP is below prior recorded values in the ED - approx 90 systolic (despite approx 500 ml NS IV - will continue IV fluids). She has a persistent oxygen requirement with RA SaO2 approx 89% prior to duoneb. Slight d-dimer elevation is c/w infection and age. PE is clinically unlikely. Chest pain is reproducible with palp. Discussed case with patient's primary care provider, (Lynette call returned 10:56). Reviewed test results. Agreed upon treatment plan and decision to place in observation. Health care provider will see patient in hospital. Refers case to other health care provider. Patient/family counseled. Additional history sought (from family). granddaughter. Old ED and inpatient records reviewed. Admission orders written. Disposition: Discharged. Condition: stable and improved. CLINICAL IMPRESSION Chest wall pain .12 lead EKG performed. Abnormal EKG. Bacterial pneumonia with hypoxemia. Vital signs recorded and reviewed; empiric antibiotics given in the ED. Acute exacerbation of COPD. Acute nontraumatic thoracic back pain associated with muscle strain. Clinical picture does not suggest congestive heart failure, pulmonary edema or embolism, myocardial infarction or pericarditis. Clinical picture does not suggest aortic dissection or pneumothorax. (Electronically signed by Atilio Cote DO 05/06/2016 13:02)
--- NOTE | 2016-05-06 10:27 | ED NURSING NOTES ---
Clinical Report - Nurses [facility] [address] [place] [address] 05/06/2016 8:19 Patient: LAURA HICKMAN TRIAGE Triage time 08:33 May 06 2016. Chief Complaint: DIFFICULTY BREATHING. 08:41 05/06/16. --08:42 Nik Martini R.N. <<STRICKEN ENTRY-- 08:33 05/06/16. BP: 97/47. HR: 77. RR: 20. O2 saturation: 99% on nasal cannula at 2 liters/minute. Temp: 97.5 F. Additional comments: RA sat checked on admission, registered at 94%. Placed pt on 2L. --08:42 Nik Martini R.N. --END STRIKE>> Correction. Pt not on 02 at this time. --08:47 Nik Martini R.N. 08:33 05/06/16. BP: 97/47. HR: 77. RR: 20. O2 saturation: 96% on room air. Temp: 97.5 F. Pain level now: 06/11. --08:47 Nik Martini R.N. Acuity: LEVEL 3. --10:27 Bekah Valero R.N. Weight: 49.8 kg stated. Height/Length: 60 inches Per Patient. BMI: 21.4. --08:32 Nik Martini R.N. Medications Calcium + D Oral. Flonase Nasal. Simvastatin Oral. Spiriva HandiHaler Inhalation. --08:37 Nik Martini R.N. Omeprazole Oral. --08:37 Nik Martini R.N. Meloxicam Oral. --08:41 Nik Martini R.N. Tylenol. --08:41 Nik Martini R.N. Vitamin D3 Oral. --08:41 Nik Martini R.N. Allergies No Known Drug Allergy. --08:35 Nik Martini R.N. History Arrived by private vehicle. Historian: patient. Accompanied by family. This started yesterday. She has had fever of 100 F orally. She has had a cough productive of white sputum. There has been a change from the baseline cough. She has had chest pain (R rib pain). Current COPD therapy: home oxygen. ( recent Hx of pneumonia and was started on home 02 after last hospital discharge roughly 1 week ago.). PAST MEDICAL HX: Chronic obstructive pulmonary disease. No history of asthma, congestive heart failure, diabetes mellitus or hypertension. Immunizations: up-to-date. SOCIAL HX: Former smoker, end date 2006. No alcohol use or drug use. No infectious disease exposure. NUTRITIONAL RISK ASSESSMENT: The nutritional risk assessment revealed no deficiencies. FUNCTIONAL ASSESSMENT: Functional assessment: no impairments noted. LEARNING NEEDS ASSESSMENT: The learning needs assessment revealed no barriers. FALL RISK ASSESSMENT: Fall risk assessment completed. Risk factors identified include patient age greater than 65 years and impairment of mobility. Fall interventions initiated. Side rails up x2. Brakes on Bed in low position. Family at bedside. Call light in reach of patient and family. Instructed not to get up without assistance. --08:42 Nik Martini R.N. Interventions ID band on patient. To room. --08:42 Nik Martini R.N. PHYSICAL ASSESSMENT To room via wheelchair. GENERAL / NEURO / PSYCH: Alert. Oriented X 4. Appears in distress. HEENT: Mucous membranes are pink. RESPIRATORY: Moderate respiratory distress. The patient can speak a few words at a time. Decreased breath sounds in the right lung base, mid-lung and upper lung; decreased breath sounds in the left lung base, mid-lung and upper lung. SKIN: Skin is warm. Normal skin turgor. --08:44 Nik Martini R.N. NURSING PROGRESS NOTES late entry -08:33. Monitoring of patient in place. Patient gowned. Reassurance given. Patient identifiers checked. Call light placed in reach. Side rails up x 2. Bed placed in lowest position. Brakes of bed on. Patient ready for evaluation- chart flagged. Patient waiting for evaluation. --09:00 Bekah Valero R.N. Patient transported to radiology by stretcher with Tellagence. (09:00 May 06 2016). --09:00 Nik Martini R.N. 09:08 05/06/2016 Duoneb (Ipratropium-Albuterol) Neb TX Nebulizer 1 unit dose given. Given by the respiratory therapist. Allergies verified and confirmed 5 rights. Frank Sneed --09:08 Frank Sneed 09:23 05/06/2016 Site #1 started via IV in the right forearm with an 20g angiocath; three attempts. Saline lock flushed with 10 mL saline. --09:23 Nik Martini R.N. 09:23 05/06/2016 Started bag #1 1000 mL IV Fluids IV NS (Saline); bolus of 1000 mL over 1 hour(s) via site #1 via IV pump. Allergies verified and confirmed 5 rights. IV patency established. IV site checked: no pain, redness, or swelling. IV flushed thoroughly pre- and post-medication administration. --09:24 Nik Martini R.N. EKG time: (9:36 AM). EKG was performed by a tech and shown to the ED physician. --09:37 Jade Barahona 09:48 05/06/2016 IV Fluids IV NS via IV site #1 Rate Changed: bag #1 decreased to 250 mL/hr via IV pump. IV patency established. IV site checked: no pain, redness, or swelling. IV flushed thoroughly. Confirmed 5 Rights. --09:48 Nik Martini R.N. 09:57 05/06/16. BP: 88/71. HR: 76. RR: 18. O2 saturation: 100% on nasal cannula at 2 liters/minute. --09:59 Nik Martini R.N. Reassessment after fluids administered. She is calm and resting quietly. Overall patient status is the same- she states feels the same. --09:59 Nik Martini R.N. 10:10 05/06/2016 Levofloxacin PO Tablets 250 mg given. Allergies verified and confirmed 5 rights. --10:10 Nik Martini R.N. 10:11 05/06/2016 Hydrocodone-APAP (Hydrocodone-Acetaminophen) PO 5/325 mg Tablets 5 tab given. Allergies verified, confirmed 5 rights and sedative warning given to the patient. --10:11 Nik Martini R.N. 10:12 05/06/2016 Zofran (Ondansetron HCl) IVP 4 mg given. via site #1. Allergies verified and confirmed 5 rights. IV patency established. IV site checked: no pain, redness, or swelling. IV flushed thoroughly pre- and post-medication administration. IVP given by RN. --10:12 Nik Martini R.N. 10:11 05/06/16. Pain level now: 07/12. --10:16 Nik Martini R.N. 11:15 05/06/16. BP: 90/50. HR: 71. RR: 18. O2 saturation: 94% on nasal cannula at 1 liters/minute. Temp: 98.1 F. Pain level now: 05/14. --11:40 Nik Martini R.N. 11:15 05/06/16. Reassessment after medication administered. She is resting quietly. Overall patient status is improved- she states feels better. RESPIRATORY: Denies difficulty breathing. No respiratory distress. CVS: Denies chest pain. Normal sinus rhythm noted. SKIN: Skin is warm. --11:40 Nik Martini R.N. Care transferred and report given. ( Spoke to Olivier HALE on Acute Care and gave report. Pt stable, ready for transport. Will go to room 202.). --12:20 Nik Martini R.N. 12:33 05/06/2016 IV Fluids IV NS Discontinued: bag #1 infused upon admission. Total amount infused: 1000 mL. IV patency established IV site checked: no pain, redness, or swelling. --12:33 Nik Martini R.N. DISPOSITION / DISCHARGE 12:23 05/06/16. BP: 90/46 (small adult cuff) taken on the left arm, via an automated monitor, while lying. HR: 77. RR: 16. O2 saturation: 98% on nasal cannula at 1 liters/minute. --12:26 Nik Martini R.N. Admitted to Acute Care (12:30 May 06 2016). Report was given to a nurse via a phone call. Report included patient's care, treatment, medications, reviewed medication reconcilliation, and condition (including any recent changes or anticipated changes). All questions were answered. Report was acknowledged and care was transferred. Bed obtained and ready (12:30 Feb 02 2017). --12:31 Nik Martini R.N. Departure time: :May 06 2016. --12:31 Nik Martini R.N. Locked/Released at 05/06/2016 12:39 by Nik Martini R.N.
--- NOTE | 2016-05-06 10:27 | ED ORDER SUMMARY ---
..... Patient: LAURA HICKMAN OrderSheet [facility] VisitID: [id number] [address] [place] [address] 75y, F Registration Date/Time: 05/06/2016 ORDER SHEET Weight: 49.8 kg (stated) Allergies: No Known Drug Allergy GENERAL ORDERS: Chest 2V (recent pneumonia) Urgent (08:49 05/06/2016 PHmschinson DO) (8:53 MCook R.N.) Electronic Development Technician (Continuous) (08:05/06/2016 [facility] (9:01 MCook R.N.) UA-Culture if indicated Urgent (:05/06/2016 [facility] DO) (Ack 9:03 LTapper) (11:19 MCook R.N.) Cardiac Panel Stat (:05/06/2016 [facility]) (Ack 9:03 LTapper) (10:19 MCook R.N.) BNP Urgent (08:05/06/2016 [facility] (Ack 9:03 LTapper) (10:19 MCook R.N.) D-Dimer Urgent (08:05/06/2016 [facility] (Ack 9:03 LTapper) (11:19 MCook R.N.) Amylase Urgent (08:05/06/2016 PHmschinson DO) (Ack 9:03 LTapper) (10:19 MCook R.N.) PT with INR Urgent (08:05/06/2016 [facility]) (Ack 9:03 LTapper) (11:19 MCook R.N.) Oxygen (2 L/min) (NC) (08:05/06/2016 [facility]) (9:01 MCook R.N.) Pulse oximeter (:05/06/2016 [facility] (9:01 MCook R.N.) EKG - ER Stat (08:05/06/2016 [facility] (Ack 9:03 LTapper) (9:28 MCook R.N.) Vitals (08:59 05/06/2016 [facility]) (9:01 MCook R.N.) PCT (Procalcitonin) Urgent (09:00 05/06/2016 [facility]) (Ack 9:03 LTapper) (10:19 MCook R.N.) Rapid Influenza Screen (Nasal Pharyngeal) (pinion sorter swab) Urgent (09:00 05/06/2016 [facility]) (Ack 9:03 LTapper) (9:25 MCook R.N.) Blood Culture (No) (N/A) Urgent (10:04 05/06/2016 [facility]) (11:20 MCook R.N.) Call (Place call to): (Dr Ojeda) (10:22 05/06/2016 [facility]) (10:47 LTapper) MEDICATION ORDERS: DuoNeb Neb Tx 1 unit dose (NOW) (08:59 05/06/2016 [facility]) (9:08 Ana) Levofloxacin PO 750 mg (NOW) (10:05 05/06/2016 [facility]) (10:10 MCook R.N.) Hydrocodone-APAP PO 5/325 mg (NOW, HIGH ALERT MEDICATION) (10:05/06/2016 [facility]) (10:11 MCook R.N.) IV FLUIDS: IV NS : initial bolus 500 mL (1000 mL/hr), then 250 mL/hr for X2 (NOW) (08:59 05/06/2016 [facility]) (Ack 9:06 SStone R.N.) (9:24 MCook R.N.) Zofran IV 4 mg (NOW) (10:06 05/06/2016 [facility]) (10:12 MCook R.N.) ORDER SHEET NOTES: [Electronically signed by Nik Martini R.N. (12:39 05/06/2016)] [Electronically signed by Atilio Cote DO (13:02 05/06/2016)] [Electronically locked/signed by Nik Martini R.N. (12:39 05/06/2016)]
--- NOTE | 2016-05-06 10:27 | ED ORDER SUMMARY ---
..... Patient: LAURA HICKMAN OrderSheet [facility] VisitID: [id number] [address] [place] [address] 75y, F Registration Date/Time: 05/06/2016 ORDER SHEET Weight: 49.8 kg (stated) Allergies: No Known Drug Allergy GENERAL ORDERS: Chest 2V (recent pneumonia) Urgent (08:49 05/06/2016 PHidchinson DO) (8:53 MCook R.N.) Cell Operation Supervisor (Continuous) (08:05/06/2016 [facility]) (9:01 MCook R.N.) UA-Culture if indicated Urgent (:05/06/2016 [facility] DO) (Ack 9:03 LTapper) (11:19 MCook R.N.) Cardiac Panel Stat (:05/06/2016 [facility]) (Ack 9:03 LTapper) (10:19 MCook R.N.) BNP Urgent (08:05/06/2016 [facility] (Ack 9:03 LTapper) (10:19 MCook R.N.) D-Dimer Urgent (08:05/06/2016 [facility]) (Ack 9:03 LTapper) (11:19 MCook R.N.) Amylase Urgent (08:05/06/2016 PHidchinson DO) (Ack 9:03 LTapper) (10:19 MCook R.N.) PT with INR Urgent (08:05/06/2016 [facility]) (Ack 9:03 LTapper) (11:19 MCook R.N.) Oxygen (2 L/min) (NC) (08:05/06/2016 [facility]) (9:01 MCook R.N.) Pulse oximeter (:05/06/2016 [facility] (9:01 MCook R.N.) EKG - ER Stat (08:05/06/2016 [facility] (Ack 9:03 LTapper) (9:28 MCook R.N.) Vitals (08:59 05/06/2016 [facility]) (9:01 MCook R.N.) PCT (Procalcitonin) Urgent (09:00 05/06/2016 [facility]) (Ack 9:03 LTapper) (10:19 MCook R.N.) Rapid Influenza Screen (Nasal Pharyngeal) (education and training manager swab) Urgent (09:00 05/06/2016 [facility]) (Ack 9:03 LTapper) (9:25 MCook R.N.) Blood Culture (No) (N/A) Urgent (10:04 05/06/2016 [facility]) (11:20 MCook R.N.) Call (Place call to): (Dr Ojeda) (10:22 05/06/2016 [facility]) (10:47 LTapper) MEDICATION ORDERS: DuoNeb Neb Tx 1 unit dose (NOW) (08:59 05/06/2016 [facility]) (9:08 Ana) Levofloxacin PO 750 mg (NOW) (10:05 05/06/2016 [facility]) (10:10 MCook R.N.) Hydrocodone-APAP PO 5/325 mg (NOW, HIGH ALERT MEDICATION) (10:05/06/2016 [facility]) (10:11 MCook R.N.) IV FLUIDS: IV NS : initial bolus 500 mL (1000 mL/hr), then 250 mL/hr for X2 (NOW) (08:59 05/06/2016 [facility]) (Ack 9:06 SStone R.N.) (9:24 MCook R.N.) Zofran IV 4 mg (NOW) (10:06 05/06/2016 [facility]) (10:12 MCook R.N.) ORDER SHEET NOTES: [Electronically signed by Nik Martini R.N. (12:39 05/06/2016)] [Electronically signed by Atilio Cote DO (13:02 05/06/2016)] [Electronically locked/signed by Nik Martini R.N. (12:39 05/06/2016)]
[2016-05-06 13:01] VITALS: BP 83/46
--- NOTE | 2016-05-06 13:02 | ED MAR SUMMARY ---
..... Medication Administration Record [facility] [address] [address] Patient: LAURA HICKMAN Visit ID: [id number] 75y, F Weight: 49.8 kg Height/Length: 60 in BMI: 21.4 ALLERGIES: No Known Drug Allergy Given 09:08 05/06/2016 Frank Sneed, Medication Administered: DUONEB [NEB TX] (IPRATROPIUM-ALBUTEROL), Dose: 1 unit dose Nebulizer Neb TX. Medication Ordered: DuoNeb Neb Tx 1 unit dose (NOW). Start 09:23 05/06/2016 Nik Martini R.N., Stop 12:33 05/06/2016 Nik Martini R.N. Medication Administered: IV NS (SALINE), Dose: IV Fluids, Bolus: 1000 mL over 1 hour(s), Dispensed: 1000 mL bag, Site: #1 right forearm. Medication Ordered: IV NS : initial bolus 500 mL (1000 mL/hr), then 250 mL/hr for X2 (NOW). Given 10:10 05/06/2016 Nik Martini R.N. Medication Administered: LEVOFLOXACIN [PO], Dose: 250 mg Tablets PO. Medication Ordered: Levofloxacin PO 750 mg (NOW). Given 10:11 05/06/2016 Nik Martini R.N. Medication Administered: HYDROCODONE-APAP [PO] (HYDROCODONE-ACETAMINOPHEN), Dose: 5 tab 5/325 mg Tablets PO. Medication Ordered: Hydrocodone-APAP PO 5/325 mg (NOW, HIGH ALERT MEDICATION). Given 10:05/06/2016 Nik Martini R.N. Medication Administered: ZOFRAN [IVP] (ONDANSETRON HCL), Dose: 4 mg IVP, Site: #1 right forearm. Medication Ordered: Zofran IV 4 mg (NOW).
--- NOTE | 2016-05-06 13:02 | ED MAR SUMMARY ---
..... Medication Administration Record [facility] [address] [place] [address] Patient: LAURA HICKMAN Visit ID: [id number] 75y, F Weight: 49.8 kg Height/Length: 60 in BMI: 21.4 ALLERGIES: No Known Drug Allergy Given 09:08 05/06/2016 Frank Sneed, Medication Administered: DUONEB [NEB TX] (IPRATROPIUM-ALBUTEROL), Dose: 1 unit dose Nebulizer Neb TX. Medication Ordered: DuoNeb Neb Tx 1 unit dose (NOW). Start 09:23 05/06/2016 Nik Martini R.N., Stop 12:33 05/06/2016 Nik Martini R.N. Medication Administered: IV NS (SALINE), Dose: IV Fluids, Bolus: 1000 mL over 1 hour(s), Dispensed: 1000 mL bag, Site: #1 right forearm. Medication Ordered: IV NS : initial bolus 500 mL (1000 mL/hr), then 250 mL/hr for X2 (NOW). Given 10:10 05/06/2016 Nik Martini R.N. Medication Administered: LEVOFLOXACIN [PO], Dose: 250 mg Tablets PO. Medication Ordered: Levofloxacin PO 750 mg (NOW). Given 10:11 05/06/2016 Nik Martini R.N. Medication Administered: HYDROCODONE-APAP [PO] (HYDROCODONE-ACETAMINOPHEN), Dose: 5 tab 5/325 mg Tablets PO. Medication Ordered: Hydrocodone-APAP PO 5/325 mg (NOW, HIGH ALERT MEDICATION). Given 10:05/06/2016 Nik Martini R.N. Medication Administered: ZOFRAN [IVP] (ONDANSETRON HCL), Dose: 4 mg IVP, Site: #1 right forearm. Medication Ordered: Zofran IV 4 mg (NOW).
--- NOTE | 2016-05-06 13:02 | ED DISCHARGE INSTRUCTIONS ---
Patient: LAURA HICKMAN General Instructions [facility] VisitID: [id number] [address] [place] [address] 75y, F Registration Date/Time: 05/06/2016 Chest wall pain .12 lead EKG performed. Abnormal EKG. Bacterial pneumonia with hypoxemia. Vital signs recorded and reviewed; empiric antibiotics given in the ED. Acute exacerbation of COPD. Acute nontraumatic thoracic back pain associated with muscle strain. (Electronically signed by Atilio Cote DO 05/06/2016 13:02)
--- NOTE | 2016-05-06 13:02 | ED DISCHARGE INSTRUCTIONS ---
Patient: LAURA HICKMAN General Instructions [facility] VisitID: [id number] [address] [place] [address] 75y, F Registration Date/Time: 05/06/2016 Chest wall pain .12 lead EKG performed. Abnormal EKG. Bacterial pneumonia with hypoxemia. Vital signs recorded and reviewed; empiric antibiotics given in the ED. Acute exacerbation of COPD. Acute nontraumatic thoracic back pain associated with muscle strain. (Electronically signed by Atilio Cote DO 05/06/2016 13:02)
--- NOTE | 2016-05-06 13:02 | ED MED RECONCILIATION SUMMARY ---
Patient: LAURA HICKMAN Medication Reconciliation Report [facility] VisitID: [id number] [address] [place] [address] 75y, F Registration Date/Time: 05/06/2016 Weight: 49.8 kg Height/Length: 60 in. BMI: 21.4 ALLERGIES: No Known Drug Allergy The patient's Home Medications are listed below: THE FOLLOWING MEDICATIONS NEED TO BE RECONCILED: Calcium + D Oral Flonase Nasal Meloxicam Oral Omeprazole Oral Simvastatin Oral Spiriva HandiHaler Inhalation Tylenol Vitamin D3 Oral The source(s) of the original Home Medication information: Not obtained. The following Medications were given to the patient in the Emergency Department: Duoneb [Neb Tx] Neb TX 1 unit dose, administered: 05/06/2016 9:08:00 AM IV NS IV Fluids bolus 1000 mL over 1 hour(s), administered: 05/06/2016 9:23:00 AM Levofloxacin [PO] PO 250 mg, administered: 05/06/2016 10:10:00 AM Hydrocodone-APAP [PO] PO 5 tab, administered: 05/06/2016 10:11:00 AM Zofran [IVP] IVP 4 mg, administered: 05/06/2016 10:12:00 AM The following Medications were prescribed to the patient: None.
--- NOTE | 2016-05-06 13:02 | ED MED RECONCILIATION SUMMARY ---
Patient: LAURA HICKMAN Medication Reconciliation Report [facility] VisitID: [id number] [address] [place] [address] 75y, F Registration Date/Time: 05/06/2016 Weight: 49.8 kg Height/Length: 60 in. BMI: 21.4 ALLERGIES: No Known Drug Allergy The patient's Home Medications are listed below: THE FOLLOWING MEDICATIONS NEED TO BE RECONCILED: Calcium + D Oral Flonase Nasal Meloxicam Oral Omeprazole Oral Simvastatin Oral Spiriva HandiHaler Inhalation Tylenol Vitamin D3 Oral The source(s) of the original Home Medication information: Not obtained. The following Medications were given to the patient in the Emergency Department: Duoneb [Neb Tx] Neb TX 1 unit dose, administered: 05/06/2016 9:08:00 AM IV NS IV Fluids bolus 1000 mL over 1 hour(s), administered: 05/06/2016 9:23:00 AM Levofloxacin [PO] PO 250 mg, administered: 05/06/2016 10:10:00 AM Hydrocodone-APAP [PO] PO 5 tab, administered: 05/06/2016 10:11:00 AM Zofran [IVP] IVP 4 mg, administered: 05/06/2016 10:12:00 AM The following Medications were prescribed to the patient: None.
[2016-05-06 13:27] VITALS: BP 95/47
[2016-05-06] MEDS ORDERED: MELOXICAM7.5 MG (14:20)
[2016-05-06] MEDS ORDERED: FOSAMAX70 MG (14:22)
[2016-05-06] MEDS ORDERED: ALBUTEROL2.5 MG/3 M IN (14:24)
[2016-05-06] MEDS ORDERED: SYMBICORT1 AE1 IN (14:32)
[2016-05-06] MEDS ORDERED: FLOVENT DISKUS50 MCG (14:59)
[2016-05-06] MEDS ORDERED: OMEPRAZOLE20 M1 (15:00)
[2016-05-06] MEDS ORDERED: ZOCOR20 MG (15:00)
[2016-05-06] MEDS ORDERED: MULTIVITAMIN1 TAB PO (15:01)
--- NOTE | 2016-05-06 15:33 | HISTORY AND PHYSICAL ---
ADMITTED: 05/06/2016 CHIEF COMPLAINT: 1. Chest pain, neck pain, back pain and weakness associated with shortness of breath HISTORY OF PRESENT ILLNESS: A 75-year-old female who presents to [facility] with a 2-3 day history of worsening cold and cough. She states it causes her to be short of breath and seems to have aggravated her chronic right neck and shoulder pain, which seems to radiate into her back and chest. She feels weaker overall and feels she is sick. She denies fevers or chills, but does admit to shortness of breath. She has home oxygen, which she normally uses only as needed at night. She has recently been using it more. She denies nausea, vomiting, or diaphoresis. MEDICAL/SURGICAL HISTORY: Surgeries: Throat surgery for laryngeal cancer, vaginal hysterectomy, and appendectomy. Past medical history: Remarkable for malignant neoplasm of the larynx in 10/2013, COPD, hyperlipidemia, osteoporosis, colon polyp and midline cystocele. Lumbar compression fracture, history of pneumonia, history of hypokalemia. History of menopausal symptoms, history of colon polyps, history of tobacco abuse. History of hyperlipidemia. MEDICATIONS: 1. Meloxicam 7.5 mg 1-2 p.o. daily p.r.n. pain. 2. Alendronate 70 mg 1 p.o. every week for osteoporosis. 3. Albuterol per nebulizer q.i.d. p.r.n. shortness of breath. One vial nebulized at a time, 0.083%. 4. Symbicort 160/4.5, one puff b.i.d. for cough and wheezing. 5. Fluticasone 2 sprays per nostril daily for allergies. 6. Calcium with vitamin D 600 mg p.o. b.i.d. 7. Omeprazole 1 p.o. b.i.d., 20 mg tabs. 8. ProAir 1-2 puffs 4 hours p.r.n. pain. 9. Simvastatin 20 mg 1 p.o. at bedtime. 10. Multivitamin 1 p.o. daily. ALLERGIES: 1. NONE KNOWN. SOCIAL HISTORY: , retired female. Retired from being a cashier manager. Hobbies: Reading and pictures. Habits: Smokin pack per day. Alcohol: None. Drug use: None. FAMILY HISTORY: Mother of heart problems at age 79. Father in a motor vehicle accident at age 23. REVIEW OF SYSTEMS: General: The patient denies fevers, chills, or sweats, though she does admit to getting cold easily; that has been a lifelong pattern. Neurologic: Positive headache. Denies seizures. Denies tremor. Admits to generalized weakness. HEENT: Positive rhinorrhea. Denies sore throat, sinus pain or ear pain. Respiratory: Positive for cough, shortness of breath and wheezing. Cardiac: The patient has chest pain, but it is atypical, seems to radiate from the right shoulder to the right chest. Denies associated palpitations, sweats. Gastrointestinal: Denies nausea, vomiting, diarrhea, constipation, melena, or bright red blood per rectum. Genitourinary: Denies dysuria, hematuria , or frequency. Skin: Denies rash, skin lesions or lacerations. PHYSICAL EXAMINATION: GENERAL: Thin, elderly female in no acute distress at the time of my evaluation. VITAL SIGNS: Blood pressure 97/47, heart rate 77, respirations 20, SaO2 of 96%, temperature 97.5. The O2 saturation of 96% was on oxygen in the emergency department. HEENT: Clear. NECK: Supple, without adenopathy or thyromegaly. CHEST: Shallow respirations bilaterally with bibasilar crackles. HEART: Regular rate and rhythm with distant heart sounds. ABDOMEN: Positive bowel sounds. Soft, nontender, without hepatosplenomegaly or masses. BACK: Straight, without CVA tenderness. EXTREMITIES: Without cyanosis, clubbing, or edema. GENITOURINARY: Deferred. RECTAL: Deferred. BREASTS: Deferred. LAB/IMAGING: EKG is obtained which shows sinus rhythm with PACs and left anterior fascicular block. Labs: WBC 13.8, hemoglobin 11.2, hematocrit 33.6, platelets 233. INR 1.1. D-dimer 0.54. Procalcitonin less than 0.5. BNP 31.2, glucose 99, BUN 14, creatinine 0.6, GFR greater than 60. Sodium 141, potassium 3.4, chloride 103, bicarbonate 31, calcium 8.3, total bilirubin 1.4, alkaline phosphatase 71, AST 14, ALT 25, magnesium 2.1. Amylase 31. CPK 15. Troponin less than 0.05. Flu test negative for influenza A or influenza B. Chest x-ray was obtained. Chest x-ray shows patchy new lingular infiltrate in the retrosternal region on the lateral view, read by radiology. IMPRESSION: 1. Pneumonia 2. Chronic obstructive pulmonary disease acute exacerbation 3. Chronic neck and shoulder pain radiating to chest 4. Hypokalemia 5. History of tobacco abuse PLAN: Admit to [facility] for IV antibiotics, oxygen supplementation, bronchodilators, nebulized, and monitoring. Anticipate gradual resolution on antibiotics. Anticipate need for more than 2 nights in the hospital, consistent with inpatient care. DVT prophylaxis will be maintained. CODE STATUS: CODE STATUS WAS DISCUSSED WITH PATIENT, WHO REQUESTS FULL CODE STATUS.
[2016-05-06 18:11] VITALS: BP 90/42
[2016-05-06 22:45] VITALS: BP 89/49
[2016-05-07 03:44] VITALS: BP 97/48
[2016-05-07 06:45] VITALS: BP 84/53
--- NOTE | 2016-05-07 08:46 | Progress Note ---
Subjective General 75 yo female with copd admitted for neck/shoulder/chest pain, pneumonia, hypokalemia and hypotension. Pt was symptomatic primarily with pain, sob and weakness. Now noting more cough. SOB controlled on oxygen. Right chest pain is now primarily pleuritic. BP remains low. Pt denies dizziness, nausea, vomiting. Constitutional Weakness, Malaise. Denies: Fever, Chills, Sweats. Respiratory Cough, Pleuritic Pain, Sputum. Denies: Wheezing, Hemoptysis. Cardiovascular Chest Pain. Denies: Palpitations, Edema, Light-headedness. Gastrointestinal Denies: Nausea, Vomiting, Abdominal Pain, Diarrhea, Constipation. Physical Exam Vital Signs / I&Os Vital Signs Date Time Temp Pulse Resp B/P Pulse O2 O2 Flow FiO2 Ox Delivery Rate 05/07 0758 2.0 05/07 0645 98.2 81 21 84/53 100 Nasal 2.0 Cannula 05/07 0344 98.4 85 20 97/48 95 Nasal 2.0 Cannula 05/07 0128 2.0 05/06 2245 98.4 79 20 89/49 100 Nasal 2.0 Cannula 05/06 1944 Nasal 2.0 Cannula 05/06 1943 2.0 05/06 1811 98.1 77 18 90/42 99 Nasal 2.0 Cannula 05/06 1623 Nasal 2.0 Cannula 05/06 1547 2.0 05/06 1327 95/47 05/06 1308 2.0 05/06 1301 98.4 71 18 83/46 95 Nasal 2.0 Cannula 05/06 0910 2.0 I&O 05/06 0800 05/06 1600 05/07 0000 Intake Total 240 120 Output Total 350 1450 Balance -110 -1330 General Appearance Alert, Oriented X3, Cooperative, No acute distress Lungs Positive rhonchi and wet cough. Cardiovascular Regular rate and rhythm Abdomen Normal bowel sounds, Soft, No tenderness Extremities No edema Skin No Rashes, No Breakdown, No Significant Lesions LAB Results Laboratory Tests 05/06 05/06 0859 0910 Chemistry Amylase Cancelled Urines Urine Color YELLOW Urine Appearance CLEAR Urine pH (5.0 - 8.0) 5.0 Ur Specific [place] (1.010 - 1.030) 1.010 Urine Protein (NEGATIVE) NEGATIVE Urine Ketones (NEGATIVE) NEGATIVE Urine Blood (NEGATIVE) NEGATIVE Urine Nitrite (NEGATIVE) NEGATIVE Urine Bilirubin (NEGATIVE) NEGATIVE Urine Urobilinogen (0.2 - 1.0 EU/dL) 0.2 Ur Leukocyte Esterase (NEGATIVE) NEGATIVE Urine RBC (0 - 1 rbc/hpf) 0-1 Urine WBC (0 - 1 wbc/hpf) 0-1 Ur Epithelial Cells (0 - 5 EPI/hpf) 0-1 Urine Bacteria (NONE SEEN) NONE SEEN Urine Glucose (NEGATIVE) NEGATIVE Urine Comment CULT NOT INDICATED 05/06 05/06 05/06 05/07 0939 0939 0939 0581 Chemistry Plasma Sodium (136 - 145 mmol/L) 141 144 Plasma Potassium (3.5 - 5.1 mmol/L) 3.4 4.4 Plasma Chloride (98 - 107 mmol/L) 103 108 CO2 (Enzymatic) (21 - 32 mmol/L) 31 30 BUN (7 - 18 mg/dL) 14 9 Creatinine (0.6 - 1.3 mg/dL) 0.6 0.7 Est GFR ( Amer) (mL/min) >60 >60 Est GFR (Non-Af Amer) (mL/min) >60 >60 Glucose (70 - 110 mg/dL) 99 97 Plasma Calcium (8.5 - 10.1 mg/dL) 8.3 7.9 Plasma Magnesium (1.8 - 2.4 mg/dL) 2.1 2.1 Total Bilirubin (0.0 - 1.0 mg/dL) 1.4 0.8 AST (15 - 37 U/L) 14 13 ALT (12 - 78 U/L) 25 22 Alkaline Phosphatase (46 - 116 U/L) 71 69 Creatine Kinase (24 - 260 U/L) 15 Troponin (0.00 - 1.5 ng/mL) <0.05 B-Natriuretic Peptide (5 - 100 pg/ml) 31.2 Total Protein (6.4 - 8.2 g/dL) 5.7 4.7 Albumin (3.3 - 5.0 g/dL) 2.7 2.3 Amylase (25 - 115 U/L) 31 Procalcitonin (0 - 0.5 ng/mL) <0.5 Coagulation INR (0.8 - 1.2) 1.1 D-Dimer, Quantitative (0.27 - 0.52 ug/mLFEU) 0.54 Hematology WBC (4.5 - 11.5 K/uL) 13.8 12.1 RBC (4.00 - 5.20 M/uL) 3.61 3.29 Hgb (12.0 - 16.0 gm/dL) 11.2 10.3 Hct (36.0 - 46.0 %) 33.6 31.1 MCV (80 - 100 fL) 93 95 MCH (26 - 34 pg) 31 31 RDW (11.6 - 14.8 %) 15.1 15.6 Neut % (Auto) (50 - 75 %) 88.0 91.7 Lymph % (Auto) (25 - 40 %) 6.6 4.3 Sunflower % (Auto) (3 - 14 %) 5.1 3.8 Eos % (Auto) (0 - 4 %) 0.2 0.1 Baso % (Auto) (0 - 2 %) 0.1 0.1 Plt Count, EDTA (150 - 400 K/uL) 233 208 PUBS MCHC (31 - 37 g/dL) 33 33 Microbiology Date/Time Procedure - Status Source Growth 05/06 1004 Blood Culture - COLB BLOOD 05/06 1004 Blood Culture - COLB BLOOD 05/06 0910 Influenza Screen - COMP NASALPHAR Assessment and Plan Problem List 1. COPD exacerbation Plan On antibiotics, oxygen and nebulized treatments and clinically improved. 2. Pneumonia Plan On appropriate therapy. 3. Hypokalemia Plan Improved with IV therapy. 4. Hypotension Plan Persistent though assymptomatic. Will continue IV fluid and increase activity as tolerated.
[2016-05-07 10:54] VITALS: BP 93/46
[2016-05-07 14:24] VITALS: BP 94/54
[2016-05-07 18:07] VITALS: BP 89/50
[2016-05-07 22:37] VITALS: BP 98/57
[2016-05-08 03:26] VITALS: BP 116/56
[2016-05-08 06:55] VITALS: BP 111/57
[2016-05-08 08:06] VITALS: BP 128/58
--- NOTE | 2016-05-08 08:21 | DIAGNOSTIC IMAGING REPORT ---
PROCEDURE: XR CHEST 2 VIEW INDICATION: pneumonia, follow-up TECHNIQUE: PA and lateral view. COMPARISON: Chest x-ray 05/06/2016 FINDINGS: Hyperinflation. Mild cardiomegaly with progression of pulmonary vascular congestion, interstitial edema and small bilateral pleural effusions consistent with CHF. Lingular alveolar opacities have resolved. Mild degenerative changes of the spine. Bony thorax is unremarkable. IMPRESSION: 1. Mild progression of CHF 2. COPD
[2016-05-08 10:57] VITALS: BP 121/59
[2016-05-08] MEDS ORDERED: LEVOFLOXACIN500 MG PO (11:37)
--- NOTE | 2016-05-08 11:43 | Provider's Discharge Care Plan ---
Problem, Goal, Plan Problem List 1. COPD exacerbation Goals: Improve disease control Instructions: Take meds as directed 2. Pneumonia Goals: Improve disease control Instructions: Take meds as directed, Stop smoking, Use oxygen continuously 3. Tobacco use disorder Goals: Improved health/wellness Instructions: Stop smoking 4. Hypokalemia Goals: Improved health/wellness Instructions: Take meds as directed
[2016-05-08] MEDS ORDERED: PREDNISONE20 MG PO (12:11)
--- NOTE | 2016-05-08 18:16 | DISCHARGE SUMMARY ---
ADMIT DATE: 05/06/2016 DISCHARGE DATE: 05/08/2016 ADMITTING DIAGNOSES: 1. Pneumonia 2. Chronic obstructive pulmonary disease acute exacerbation 3. Chronic neck and shoulder pain radiating to the chest 4. Hypokalemia 5. History of tobacco abuse DISCHARGE DIAGNOSES: 1. Pneumonia 2. Chronic obstructive pulmonary disease acute exacerbation 3. Chronic neck and shoulder pain radiating to the chest 4. Hypokalemia 5. History of tobacco abuse 6. Myocardial infarction ruled out BRIEF HISTORY: A 75-year-old female who presented to [facility] with worsening cold and cough symptoms, shortness of breath, and pain in her right chest. This was felt to be radiating from the neck and shoulder into the right chest. She was also noted to be hypotensive in the emergency department and hypoxic. She was, therefore, admitted when chest x-ray showed pneumonia in the lingula. HOSPITAL COURSE: The patient was admitted and treated with IV levofloxacin, IV fluids, steroids, and nebulized treatments. She tolerated this treatment well with oxygen supplementation and gradually improved. She was noted to be hypokalemic on admission. This resolved with IV hydration. She was on telemetry and had serial cardiac enzymes which revealed no evidence of a cardiac problem. Repeated chest x-ray showed resolution of infiltrate with some mild fluid overload from IV hydration. IV fluids were, therefore, discontinued. By the time of discharge, the patient was tolerating oral intake and ambulating on 1 liter of oxygen without significant desaturation with 1 liter of oxygen. She was, therefore, felt to be stable for discharge home on oxygen. DISCHARGE INSTRUCTIONS/MEDICATIONS: Disposition: Home with [facility] for followup, monitoring, and management of oxygen. Discharge medications: Levofloxacin 500 mg 1 p.o. daily x7 days, Combivent 1 puff q.6 hours, albuterol 2 puffs q.3 hours p.r.n. shortness of breath, meloxicam 7.5 mg 1-2 daily p.r.n. pain, alendronate 70 mg weekly, albuterol nebulized 2.5 mg q.4 hours p.r.n. wheeze, Symbicort 1 puff b.i.d., fluticasone nasal spray 2 sprays per nostril daily, omeprazole 20 mg daily, simvastatin 20 mg p.o. at bedtime, multivitamin 1 p.o. daily. Followup: Follow up with primary care office in 1-2 weeks. Light activity at home. Use oxygen continuously at 1 liter per nasal prongs. AHA diet recommended.
== END 2016-05-08 13:30 | disposition home or self-care (01) | DRG 190 ==
LOC: ED SRH 08:19 → ACUTE2 SRH 11:33 → TRANS SRH 11:33 → ACUTE2 SRH 11:33
PROVIDERS: ADMIT Emergency Medicine
DX: J44.0 Chronic obstructive pulmonary disease with (acute) lower respiratory infection (principal); J18.9 Pneumonia, unspecified organism; R09.02 Hypoxemia; J44.1 Chronic obstructive pulmonary disease with (acute) exacerbation; E87.6 Hypokalemia; E78.5 Hyperlipidemia, unspecified; M54.2 Cervicalgia; M25.511 Pain in right shoulder; Z85.21 Personal history of malignant neoplasm of larynx; Z99.81 Dependence on supplemental oxygen
CPT/HCPCS: 83751; 85244; 90004; 90065; 90074; 90100; 90616; 91320; 91400; 91556; 91643; 92530; 92610; 92720; 93004; 94060; 95059

== ENCOUNTER 2016-06-11 14:07 | Outpatient (CLI) | payer OTHER ==
[~2016-06-11 14:07] MED LIST changes: +ALBUTEROL2.5 MG/3 M IN; +FLOVENT DISKUS50 MCG; +FOSAMAX70 MG; +LEVOFLOXACIN500 MG PO; +MELOXICAM7.5 MG; +MULTIVITAMIN1 TAB PO; +OMEPRAZOLE20 M1; +SYMBICORT1 AE1 IN; +ZOCOR20 MG
--- NOTE | 2016-06-11 15:12 | DIAGNOSTIC IMAGING REPORT ---
PROCEDURE: MG BILATERAL SCREENING W/CAD INDICATION: SCREENING TECHNIQUE: Standard CC and MLO views bilaterally. Computer aided detection was used. COMPARISON: 03/11/2010, 08/21/2008 FINDINGS: Mildly dense fibroglandular tissue is present bilaterally. No developing densities, areas of architectural distortion, or suspicious microcalcifications. IMPRESSION: 1. Stable mammograms without radiographic evidence of malignancy. RESULT CODE: 1- Negative. A. A negative report should not delay biopsy if a dominant or clinically suspicious mass is present. 10-15% of cancers are not identified by x-ray. B. A negative report may reinforce clinical impression. C. Adenosis and dense breasts may obscure an underlying neoplasm. D. False positive reports average 6-10%. E.. A yearly screening mammogram is recommended. A reminder letter will be scheduled.
== END 2016-06-11 23:00 ==
LOC: MAM SRH 14:07
DX: Z12.31 Encounter for screening mammogram for malignant neoplasm of breast (principal)